=== PATIENT | male | born 1930 | race Caucasian/White ===

== ENCOUNTER → 2016-08-28 | Outpatient (CLI) | payer MEDICARE | LOC: GMAH 12:03 | PROVIDERS: ATTEND Family Medicine | DX: G40.309 Generalized idiopathic epilepsy and epileptic syndromes, not intractable, without status epilepticus (principal); E78.2 Mixed hyperlipidemia; Z12.5 Encounter for screening for malignant neoplasm of prostate | CPT/HCPCS: 80185; 84443; 84550; G0103 ==

== ENCOUNTER → 2016-12-21 | Outpatient (CLI) | payer MEDICARE | END | disposition home or self-care (01) | LOC: YCHH 09:15 | PROVIDERS: ATTEND Family Medicine | DX: I50.9 Heart failure, unspecified (principal); I10 Essential (primary) hypertension ==

== ENCOUNTER → 2017-02-13 | Outpatient (CLI) | payer MEDICARE | END | disposition home or self-care (01) | LOC: YCHH 09:11 | PROVIDERS: ATTEND Family Medicine | DX: I50.9 Heart failure, unspecified (principal); I10 Essential (primary) hypertension; M10.00 Idiopathic gout, unspecified site; Z79.01 Long term (current) use of anticoagulants ==

== ENCOUNTER → 2017-05-01 | Outpatient (CLI) | payer MEDICARE | LOC: YCHH 12:16 | PROVIDERS: ATTEND Family Medicine | DX: N18.9 Chronic kidney disease, unspecified (principal); I50.9 Heart failure, unspecified; I10 Essential (primary) hypertension; I48.0 Paroxysmal atrial fibrillation; G30.1 Alzheimer's disease with late onset ==

== ENCOUNTER 2017-09-09 05:40 | Day surgery (SDC) | payer MEDICARE ==
[2017-09-09] MEDS ORDERED: TROP 1%/CYCLOPEN 1%/PHENYL 2% DROPS ONE (05:46)
[2017-09-09] MEDS ORDERED: PROPARACAINE 0.5% OPHTH SOL 15 ML BTTL ONE (05:46)
[2017-09-09] MEDS ORDERED: MIDAZOLAM INJ 2 MG/2 ML VIAL ONE (06:55)
[2017-09-09] MEDS: TOBRAMYCIN SULF 0.3 % OPHT SOL 1 DROP LEFT_EYE ONE ×2 (07:00→07:32)
[2017-09-09] MEDS ORDERED: PROPARACAINE 0.5% OPHTH SOL 15 ML BTTL LEFT_EYE ONE (07:22)
[2017-09-09] MEDS ORDERED: DEXAMETHASONE 0.1% OPHTH SOL 1 DROP LEFT_EYE ONE ×3 (07:31→07:43)
[2017-09-09] MEDS ORDERED: LIDOCAINE 1% MPF 5 ML VIAL INJ ONE (07:31)
[2017-09-09] MEDS ORDERED: BRIMONIDINE 0.2% OPHTH DROPS LEFT_EYE ONE ×3 (07:32→07:43)
[2017-09-09] MEDS ORDERED: TOBRAMYCIN SULF 0.3 % OPHT SOL 1 DROP LEFT_EYE ONE ×2 (07:41→07:43)
[2017-09-10 10:29] VITALS: BP 158/68; TEMP 97.4; O2SAT 95
== END 2017-09-09 08:25 | disposition home or self-care (01) ==
LOC: AMB 05:40
PROVIDERS: ATTEND Ophthalmology
DX: H25.12 Age-related nuclear cataract, left eye (principal); I10 Essential (primary) hypertension; K21.9 Gastro-esophageal reflux disease without esophagitis; F41.9 Anxiety disorder, unspecified; Z88.8 Allergy status to other drugs, medicaments and biological substances; Z79.899 Other long term (current) drug therapy
CPT/HCPCS: 00142; 66984; J2250

== ENCOUNTER 2017-09-23 05:35 | Day surgery (SDC) | payer MEDICARE ==
[2017-09-23] MEDS ORDERED: TROP 1%/CYCLOPEN 1%/PHENYL 2% DROPS ONE (05:47)
[2017-09-23] MEDS ORDERED: MIDAZOLAM INJ 2 MG/2 ML VIAL ONE (07:13)
[2017-09-23] MEDS: PROPARACAINE 0.5% OPHTH SOL 15 ML BTTL ONE ×2 (07:48→09:13)
[2017-09-23] MEDS: TOBRAMYCIN SULF 0.3 % OPHT SOL 1 DROP RIGHT_EYE ONE ×2 (07:49→09:28)
[2017-09-23] MEDS ORDERED: LIDOCAINE 1% PF 2 ML AMP INJ ONE (09:18)
[2017-09-23] MEDS ORDERED: DEXAMETHASONE 0.1% OPHTH SOL 1 DROP RIGHT_EYE ONE ×2 (09:28→09:33)
[2017-09-23] MEDS ORDERED: BRIMONIDINE 0.2% OPHTH DROPS RIGHT_EYE ONE ×2 (09:29→09:33)
[2017-09-23] MEDS ORDERED: TOBRAMYCIN SULF 0.3 % OPHT SOL 1 DROP RIGHT_EYE ONE (09:33)
[2017-09-24 08:36] VITALS: BP 152/78; TEMP 97.6; O2SAT 97
== END 2017-09-23 10:15 | disposition home or self-care (01) ==
LOC: AMB 05:35
PROVIDERS: ATTEND Ophthalmology
DX: H25.11 Age-related nuclear cataract, right eye (principal); I10 Essential (primary) hypertension; I25.10 Atherosclerotic heart disease of native coronary artery without angina pectoris; J44.9 Chronic obstructive pulmonary disease, unspecified; Z79.899 Other long term (current) drug therapy
CPT/HCPCS: 00142; 66984; J2250

== ENCOUNTER → 2017-10-09 | Outpatient (CLI) | payer MEDICARE | LOC: YCHH 11:58 | PROVIDERS: ATTEND Family Medicine | DX: M10.00 Idiopathic gout, unspecified site (principal); E03.9 Hypothyroidism, unspecified; R68.89 Other general symptoms and signs; I50.9 Heart failure, unspecified; Z12.5 Encounter for screening for malignant neoplasm of prostate; Z79.899 Other long term (current) drug therapy | CPT/HCPCS: 80053; 80061; 80162; 80185; 81001; 82248; 84443; 84550; 85025; G0103 ==

== ENCOUNTER 2017-12-26 14:38 | Observation (INO) | payer MEDICARE ==
--- NOTE | 2017-12-26 15:03 | RAD ---
Frontal and lateral views of the right knee. Indication: fall with swelling and pain Comparison: June 26, 2015. Impression: Severe tricompartmental right knee osteoarthritis of pronounced joint space narrowing, cortical remodeling, joint line osteophytes. Chondrocalcinosis of the menisci noted. Soft tissue swelling noted anterior to the distal quadriceps tendon with suspected internal ossification within the tendon itself. Tendon tearing may be present. MRI could better evaluate as clinically indicated. Small knee effusion suspected. The bones are osteopenic. Given this limitation, no gross fracture identified. Scattered vascular calcifications. Electronically signed by: Guillermo Sanders MD 12/26/2017 3:02 PM CDT
--- NOTE | 2017-12-26 15:06 | ED.PDOC ---
History of Present Illness - General Chief Complaint: Trauma Stated Complaint: fall Time Seen by Provider: 12/26/17 15:01 Source: patient Exam Limitations: clinical condition - History of Present Illness Initial Comments: THIS PATIENT COMES TO THE ED BY AMBULANCE. EVIDENTLY HE FELL SEVERAL DAYS AGO AND INJURED HIS RIGHT KNEE AND SINCE THEN HE HAS BEEN CONFUSED. IT IS UNKNOWN IF HE INJURED HIS HEAD OR NOT. HE HAS GOUT. HE SEEMS CONFUSED AND IS A POOR HISTORIAN. Timing/Duration: 1 week Severity: moderate Improving Factors: immobilization Worsening Factors: movement Associated Symptoms: fever/chills, other - PROBLEMS TO URINATE. Allergies/Adverse Reactions: Allergies Codeine Allergy (Verified 12/26/17 14:56) Home Medications: Ambulatory Orders Allopurinol [Zyloprim] 300 mg PO DAILY 03/31/14 Levothyroxine Sodium [Synthroid] 0.175 mg PO ACBK #0 tab 04/01/14 Digoxin 0.125 mg PO BEDTIME 12/02/14 Indomethacin 50 mg PO DAILY PRN 12/02/14 Phenytoin Sodium Extended 100 mg PO BEDTIME 12/02/14 Potassium Gluconate 595 mg PO DAILY 12/02/14 Saw [place] (Serenoa Repens) [Saw [place]] 900 mg PO DAILY 12/02/14 Esomeprazole Magnesium [Nexium] 40 mg PO DAILY #30 cap 12/03/14 Furosemide [Lasix] 20 mg PO DAILY PRN 06/23/15 Bifidobacterium Infantis [Align] 4 mg PO BID #0 cap 06/27/15 predniSONE [Prednisone] 20 mg PO DAILY #3 tab 06/10/16 Review of Systems - Review of Systems Constitutional: States: fever, weakness EENTM: States: no symptoms reported Respiratory: States: no symptoms reported Cardiology: States: no symptoms reported Gastrointestinal/Abdominal: States: no symptoms reported Genitourinary: States: dysuria, frequency Musculoskeletal: States: joint pain, other - RIGHT KNEE PAIN Skin: States: no symptoms reported Neurological: States: tremors Endocrine: States: no symptoms reported Hematologic/Lymphatic: States: no symptoms reported All other Systems: Reviewed and Negative, No Change from Baseline Past Medical History (General) - Patient Medical History Hx Seizures: Yes Hx Stroke: No Hx Dementia: No Hx Asthma: No Hx of COPD: No Hx Cardiac Disorders: No Hx Congestive Heart Failure: Yes Hx Pacemaker: No Hx Hypertension: Yes Hx Thyroid Disease: Yes Hx Diabetes: No Hx Gastroesophageal Reflux: No Hx Renal Disease: No Hx Cancer: No Hx of HIV: No Hx Hepatitis C: No Hx MRSA: No MRSA Source:: Wound - Vaccination History Hx Tetanus, Diphtheria Vaccination: No Hx Influenza Vaccination: Yes Hx Pneumococcal Vaccination: Yes - Social History Hx Tobacco Use: No Hx Chewing Tobacco Use: No Hx Alcohol Use: No Hx Substance Use: No Hx Substance Use Treatment: No Hx Depression: No Hx Physical Abuse: No Hx Emotional Abuse: No Hx Suspected Abuse: No - Female History Patient : No Family Medical History - Family History Mother Family History: Unknown Living Status: Age at (years of age): 26 Cause of : TB Hx Family Asthma: No Hx Family Congestive Heart Failure: No Hx Family Hypertension: Yes - Brother Hx Family Stroke: Yes - Aunt Hx Cardiac Disease: No Hx Family Diabetes: No Hx Family Cancer: Yes - Aunt Physical Exam - Physical Exam General Appearance: Anxious, Frail, Other - CONFUSED, DIFFICULT TO OBTAIN A GOOD HISTORY Eye Exam: bilateral normal Ears, Nose, Throat: hearing grossly normal Neck: non-tender, full range of motion, supple, normal inspection Respiratory: chest non-tender, lungs clear, normal breath sounds, no respiratory distress, no accessory muscle use Cardiovascular/Chest: normal peripheral pulses, regular rate, rhythm, no edema, no gallop, no JVD, no murmur Peripheral Pulses: radial,right: 2+, radial,left: 2+ Gastrointestinal/Abdominal: normal bowel sounds, non tender, soft, no organomegaly, no pulsatile mass, other - DISTENDED BLADDER Rectal Exam: deferred Back Exam: normal inspection, no CVA tenderness, no vertebral tenderness Extremity: swelling - RIGHT KNEE WITH A TIGHT EFFUSION Neurologic: no motor/sensory deficits, alert, other - TREMOR NOTED Skin Exam: normal color Lymphatic: no adenopathy Progress - Results/Orders Results/Orders: THE LAB AND THE IMAGING IS REPORTED:' RIGHT KNEE: SEVERE DJD CT BRAIN: NO ACUTE PROCESS CXR: NO ACUTE PROCESS CBC: WBC'S 8.4, 78 % NEUTROPHILS CMP: CREATININE 1.69, BUN 41 BNP: 359 UA: NORMAL DIG LEVEL: 0.3 Procedures - Additional Procedures Progress: ARTHROCENTESIS; THE RIGHT KNEE HAD A TRAUMATIC EFFUSION-TIGHT PROCEDURE: THE KNEE WAS PREPPED WITH BETADINE AND ON THE MEDIAL AND LATERAL ASPECT OF THE KNEE I INFILTRATED WITH 1% LIDOCAINE. WITH AN 18 GUERRERO NEEDLE I OBTAINED 100 CC OF SEROUS SANGUINEOUS FLUID. THE PATIENT TOLERATED THE PROCEDURE WELL. THE SPECIMEN WAS SENT TO THE LAB. FOR WBC AND CULTURE. Departure - Departure Clinical Impression: Traumatic joint effusion Altered mental status Qualifiers: Altered mental status type: disorientation Qualified Code(s): R41.0 - Disorientation, unspecified Dementia Qualifiers: Dementia type: unspecified type Dementia behavioral disturbance: without behavioral disturbance Qualified Code(s): F03.90 - Unspecified dementia without behavioral disturbance Time of Disposition: 19:43 Referrals: Rojelio Mcdermott MD [Primary Care Provider] - 1-2 Weeks Home Medications: Ambulatory Orders Allopurinol [Zyloprim] 300 mg PO DAILY 03/31/14 Levothyroxine Sodium [Synthroid] 0.175 mg PO ACBK #0 tab 04/01/14 Digoxin 0.125 mg PO BEDTIME 12/02/14 Indomethacin 50 mg PO DAILY PRN 12/02/14 Phenytoin Sodium Extended 100 mg PO BEDTIME 12/02/14 Potassium Gluconate 595 mg PO DAILY 12/02/14 Saw [place] (Serenoa Repens) [Saw [place]] 900 mg PO DAILY 12/02/14 Esomeprazole Magnesium [Nexium] 40 mg PO DAILY #30 cap 12/03/14 Furosemide [Lasix] 20 mg PO DAILY PRN 06/23/15 Bifidobacterium Infantis [Align] 4 mg PO BID #0 cap 06/27/15 predniSONE [Prednisone] 20 mg PO DAILY #3 tab 06/10/16 Decision To Admit - Decistion To Admit Decision to Admit Date: 12/26/17 Decision to Admit Time: 19:44 - CASE DISCUSSED WITH SUDHA ROGERS RN
--- NOTE | 2017-12-26 15:46 | RAD ---
EXAM DESCRIPTION: Chest,1 View CLINICAL HISTORY: 87 years Male, SOB COMPARISON: None. TECHNIQUE: AP portable chest. FINDINGS: Heart size is prominent with normal pulmonary vascularity. No consolidating infiltrate. Linear scar in the right upper lobe above the minor fissure. Linear scar in the lingula. No pulmonary mass or worrisome nodule. No pneumothorax or pleural effusion. Old left rib fractures appear healed. Advanced degenerative changes of the shoulders noted bilaterally. Wide superior mediastinum is probably vascular although cervicothoracic goiter might be considered with slight leftward tracheal deviation. IMPRESSION: No consolidating infiltrate. Electronically signed by: Ken Tavares MD 12/26/2017 3:45 PM CDT
[2017-12-26] MEDS ORDERED: LIDOCAINE 1% 10 ML VIAL INJ ONE (16:01)
--- NOTE | 2017-12-26 18:22 | CT ---
PROCEDURE: Head CLINICAL HISTORY: 87 years Male AMS, RECENT FALL COMPARISON: None. TECHNIQUE: Contiguous axial images obtained through the brain without IV contrast. This exam was performed according to our department optimization program which includes automated exposure control, adjustment of the mA and/or kv according to patient size and/or use of iterative reconstruction technique. FINDINGS: The ventricles and sulci are prominent consistent with atrophic changes. No mass lesions. No acute hemorrhage. Atherosclerotic calcifications. Mild microvascular ischemic changes. Old lacunar infarcts or cysts in the basal ganglia regions. Minimal mucosal thickening in the maxillary sinuses. No depressed calvarial fractures. IMPRESSION: No acute intracranial abnormality is identified. Electronically signed by: Carlos Baires MD 12/26/2017 6:21 PM CDT
[2017-12-26] MEDS ORDERED: traMADol HCL 50 MG TAB PO ONE (19:11)
--- NOTE | 2017-12-26 20:08 | HP ---
SUPERVISING PHYSICIAN: Good Negro MD CHIEF COMPLAINT: Right knee pain and altered mental status. HISTORY OF PRESENT ILLNESS: This is an 87-year-old male patient who was brought to the Emergency Room via ambulance. Evidently he fell several days ago. The date was unknown, nor was the time know nor the extent of the injury because of the patient's mental status, but he has been complaining of right knee pain since that time. In the Emergency Room, his right knee was drained and obtained about 100 mL of serosanguineous fluid from the knee. It was sent for culture. He does have a history of gout. According to the family, he has also had a change in his mental status over the last 2 to 3 weeks and in the Emergency Room, his vital signs showed a temperature of 100.7, heart rate 96, blood pressure 137/69, respiratory rate 18, O2 saturation 92%. BNP was elevated at 359. WBCs 8.4, hemoglobin 13,hematocrit 38.4. Sodium 141, potassium 3.9, chloride 100, carbon dioxide 30, BUN 41, creatinine 1.69. His baseline creatinine is 1.5. Alkaline phosphatase 163. The remainder of his liver enzymes were within normal limits. Urinalysis was negative. Digoxin was slightly low at 0.3. Blood cultures were drawn. Head CT was done and per radiologic interpretation showed no acute intracranial abnormality. Chest x- ray showed no consolidating infiltrate. Right knee x-ray showed severe tricompartmental right knee osteoarthritis and pronounced joint space narrowing , cortical remodeling, joint-line osteophytes, chondrocalcinosis of the menisci noted. There is also soft tissue swelling noted anterior to the distal quadriceps tendon with suspected internal ossification within the tendon itself. Tendon tearing may be present and MRI could better evaluate the knee. Given the patient's change in mental status and the knee pain, I was called for admission. Past medical history and review of systems is limited due to no family available and the patient's present mental state. Information was obtained from the EMR. PAST MEDICAL HISTORY: 1. Atrial fibrillation. 2. Benign prostatic hypertrophy. 3. Chronic renal insufficiency. 4. Congestive heart failure of unknown etiology with no echocardiogram on the chart to review. 5. Gouty arthritis. 6. History of thyroid malignancy on Synthroid. 7. Hyperlipidemia. 8. Osteopenia. 9. Seizure disorder. PAST SURGICAL HISTORY: 1. Appendectomy. 2. 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 3. Thyroidectomy. 4. Neck surgery. 5. Left total knee arthroplasty. OUTPATIENT MEDICATIONS: Per the EMR and awaiting verification. ALLERGIES: CODEINE. FAMILY HISTORY: Noncontributory. CODE STATUS: He does have an Advance Directive that is to be brought to the hospital tomorrow by family members. SOCIAL HISTORY: He is . He lives with his . He has a history of cigar smoking, but he quit many years ago. There is no history of ETOH or illicit drug use. REVIEW OF SYSTEMS: Limited due to the patient's mental status. PHYSICAL EXAMINATION: VITAL SIGNS: Temperature 98.6. Pulse rate 85. Blood pressure 152/75. Respiratory rate 18. O2 saturation 93% on room air. GENERAL: This is an 87-year-old male patient lying in his hospital bed. He is in no acute distress. HEENT: Normocephalic, atraumatic. Pupils are equal and reactive. Oropharynx is clear. NECK: Supple without mass. No discernible jugular venous distention. RESPIRATORY: Essentially clear to auscultation bilaterally. CHEST: There is equal rise and fall of the chest with inspiration and expiration. CARDIOVASCULAR: Regular rate and rhythm. GASTROINTESTINAL: Abdomen is soft, nondistended, nontender. Bowel sounds are positive. EXTREMITIES: No cyanosis, clubbing or edema. He does have some swelling to the right knee just the right knee. It is wrapped in an Wally bandage from the drainage from the Emergency Room doctor. It is slightly tender to palpation along the superior portion of the kneecap on the anterior side. NEUROLOGIC: Awake, alert and disoriented. LABORATORY: Labs and films are as per history of present illness. ASSESSMENT: 1. Altered mental status of approximately 2 to 3 weeks with a negative CT of the head and no obvious source of infection. 2. Recent fall with trauma to the right knee, unknown date and time and unknown extent of injury due the patient's mental state. 3. Renal insufficiency with a baseline creatinine of 1.5. 4. Seizure disorder. 5. Atrial fibrillation. 6. Congestive heart failure of unknown etiology. 7. History of gouty arthritis. PLAN: We will place the patient in observation. We will do q.4h. neuro checks. I will restart his home medications. Hopefully I can speak to the family tomorrow to get a little bit better idea of what is going on with him. I will also talk to the patient's family physician, Dr. Mcdermott. Depending on his clinical condition, we may need to consult Dr. Morales tomorrow regarding the right knee. I will monitor the cultures and followup as needed. Dr. Negro is the collaborating physician and available for consultation. #[id number] [facility]
[2017-12-26] MEDS ORDERED: SODIUM CHLORIDE 0.9% (FLUSH) 10 ML SYG IV PRN (20:51)
[2017-12-26] MEDS ORDERED: IV SET AND CAP CHANGE INJ INJ SCH (21:00)
[2017-12-26] MEDS ORDERED: PANTOPRAZOLE SODIUM IV 40 MG VIAL IV SCH (21:30)
[2017-12-26] MEDS ORDERED: PHENYTOIN SODIUM CAP EXTENDED 100 MG CAP PO SCH (21:32)
[2017-12-26] MEDS: SODIUM CHLORIDE 0.9% (FLUSH) 10 ML SYG IV SCH (21:53)
[2017-12-27] MEDS ORDERED: LEVOTHYROXINE SODIUM 0.075 MG TAB ONE (04:55)
[2017-12-27] MEDS ORDERED: LEVOTHYROXINE SODIUM 0.1 MG TAB PO SCH (07:00)
[2017-12-27] MEDS: SODIUM CHLORIDE 0.9% (FLUSH) 10 ML SYG IV SCH (08:45)
[2017-12-27] MEDS ORDERED: DIGOXIN 0.125 MG TAB PO SCH ×2 (12:00→21:00)
[2017-12-27] MEDS ORDERED: POTASSIUM CHLORIDE 20 MEQ TAB PO ONE (13:02)
[2017-12-27] MEDS ORDERED: IBUPROFEN 400 MG TAB PO ONE (13:14)
[2017-12-27] MEDS ORDERED: IBUPROFEN 200 MG TAB ONE (13:18)
--- NOTE | 2017-12-27 15:55 | RAD ---
EXAM DESCRIPTION: Hip,Right 2 Views CLINICAL HISTORY: hip pain COMPARISON: None. IMPRESSION: 2 views of the right hip shows no evidence of acute fracture, focal bone destruction, or joint dislocation. Moderate joint space narrowing and sclerotic changes to the superior lateral acetabulum are seen consistent with moderate to severe osteoarthritic-type changes. Question heterotopic ossification around the femoral neck. If the patient's pain persists, further evaluation with CT or MRI imaging is recommended for better evaluation. Soft tissues show surgical suture line in the right lower abdomen and pelvis. Findings suggest mild to moderate fecal impaction in the colon. Electronically signed by: Manuelito Trent MD 12/27/2017 3:53 PM CDT
[2017-12-27] MEDS ORDERED: PANTOPRAZOLE SODIUM TAB 40 MG PO SCH (16:30)
[2017-12-27 18:01] VITALS: TEMP 98.4
[2017-12-27 18:07] VITALS: BP 125/68; O2SAT 94
[2017-12-27] MEDS ORDERED: PHENYTOIN SODIUM CAP (ER DISP) 100 MG CAP PO SCH (21:00)
[2017-12-28] MEDS ORDERED: LEVOTHYROXINE SODIUM 0.075 MG TAB PO SCH (06:30)
[2017-12-28] MEDS ORDERED: LEVOTHYROXINE SODIUM 0.1 MG TAB PO SCH (06:30)
--- NOTE | 2017-12-30 19:00 | DS ---
SUPERVISING PHYSICIAN: Good Negro M.D. DISCHARGE DIAGNOSIS: 1. Altered mental status of approximately 2 to 3 weeks with a negative CT of the head and no obvious source of infection. 2. Recent fall with trauma to the right knee, unknown date and time and unknown extent of injury due the patient's mental status. 3. Renal insufficiency with a baseline creatinine of 1.5. 4. Seizure disorder. 5. Atrial fibrillation. 6. Congestive heart failure of unknown etiology. 7. History of gouty arthritis. HISTORY OF PRESENT ILLNESS: This is an 87-year-old male patient who was brought to the Emergency Room on date of admission via ambulance. He fell several days prior to his admission. He had been complaining about right knee pain and in the Emergency Room the E. R. doctor drained approximately 100 mL of serosanguineous fluid from the knee. It was sent for culture. He does have a history of gout, also of concerns for a 2 to 3 week history of acute mental status changes. The patient does have a history of dementia but the family says it has worsened in the last 2 to 3 weeks. His vital signs in the Emergency Room showed a temperature of 100.7, heart rate 96, blood pressure 137/ 69, respiratory rate 18, O2 saturation 92%. BNP was elevated at 359. WBCs 8.4 , hemoglobin 13, hematocrit 38.4. Sodium 141, potassium 3.9, chloride 100, carbon dioxide 30, BUN 41, creatinine 1.69. His baseline creatinine is 1.5. Alkaline phosphatase 163. The remainder of his liver enzymes were within normal limits. Urinalysis was negative. Digoxin was slightly low at 0.3. Blood cultures were drawn. Head CT was done and per radiologic interpretation showed no acute intracranial abnormality. Chest x-ray showed no consolidating infiltrate. Right knee x-ray showed severe tricompartmental right knee osteoarthritis and pronounced joint space narrowing with cortical remodeling, joint-line osteophytes, chondrocalcinosis of the menisci was noted. There is also soft tissue swelling noted anterior to the distal quadriceps tendon with suspected internal ossification within the tendon itself. Tendon tearing may be present and MRI was recommended. He was placed in Observation in the hospital. HOSPITAL COURSE: He was given fluids overnight. I discussed his case at length with Dr. Mcdermott the morning of discharge and he did say that he had known this patient for 20 plus years and there was definitely a mental status change, although today his mental status had improved. His vital signs remained stable. Potassium was slightly low this morning at 3.3 but his creatinine had improved to 1.57. On admission, the patient had a difficult time answering simple questions. Today, he is oriented to person and place. He will be discharged home today. DISCHARGE PLAN: The patient will be discharged home in stable condition. We have ordered an MRI as an outpatient on Saturday as well as an MRI of the right knee. He will followup with his primary care physician, Dr. Mcdermott, on Saturday , December 31. He will be discharged home with [facility]. He will be discharged home on his previous medications. He is to return to the hospital or call Dr. Mcdermott's office for any further problems or complications. DISCHARGE MEDICATIONS: 1. Allopurinol. 2. Synthroid. 3. Saw palmetto. 4. Potassium gluconate. 5. Indomethacin. 6. Phenytoin. 7. Digoxin. 8. Nexium. 9. Lasix. 10. Align. 11. Flexeril. 12. Warfarin. Dr. Negro is the collaborating physician available for consultation. #[id number] [facility]
== END 2017-12-27 15:30 | disposition home or self-care (01) ==
LOC: ER 14:38 → MS 20:05
PROVIDERS: ADMIT Nurse Practitioner Acute Care; ATTEND Nurse Practitioner Acute Care
DX: M25.461 Effusion, right knee (principal); S89.81XA Other specified injuries of right lower leg, initial encounter; M17.11 Unilateral primary osteoarthritis, right knee; R41.82 Altered mental status, unspecified; M10.9 Gout, unspecified; F03.90 Unspecified dementia, unspecified severity, without behavioral disturbance, psychotic disturbance, mood disturbance, and anxiety; M25.551 Pain in right hip; I48.91 Unspecified atrial fibrillation; I13.0 Hypertensive heart and chronic kidney disease with heart failure and stage 1 through stage 4 chronic kidney disease, or unspecified chronic kidney disease; N18.9 Chronic kidney disease, unspecified; I50.9 Heart failure, unspecified; E78.5 Hyperlipidemia, unspecified; G40.909 Epilepsy, unspecified, not intractable, without status epilepticus; M85.861 Other specified disorders of bone density and structure, right lower leg; W19.XXXA Unspecified fall, initial encounter; Y92.009 Unspecified place in unspecified non-institutional (private) residence as the place of occurrence of the external cause; Z79.899 Other long term (current) drug therapy; Z88.6 Allergy status to analgesic agent; Z87.891 Personal history of nicotine dependence
CPT/HCPCS: 20610; 96374; 89051; 80053 ×2; 36415 ×3; 84550; 81001; 85025 ×2; 87040 ×2; 87070; 80162; 84443; 83880; 71045; 73560 ×2; 73502; 70450; 94760 ×4; 99285; G0378

== ENCOUNTER → 2017-12-30 | Outpatient (CLI) | payer MEDICARE ==
--- NOTE | 2017-12-30 14:26 | MRI ---
MRI right knee without contrast INDICATION: Chronic knee pain chondrosis and arthritis TECHNIQUE: Noncontrast MR imaging right knee standard protocol FINDINGS: Cruciate ligaments are intact. Large joint effusion. Extensor tendons are intact. There is advanced osteoarthrosis with [id number] joint space narrowing and grade 4 chondrosis with subchondral edema and cystic change throughout the medial tibiofemoral compartment. The medial meniscus demonstrates a diffuse degenerative tear with maceration volume loss and extrusion of the remnant along the medial joint line. There is lower grade osteoarthrosis of the lateral tibiofemoral compartment with multifocal grade 4 chondrosis with subchondral edema and cystic change. There is a horizontal cleavage type degenerative tear throughout the lateral meniscus. No disruption of the collateral ligaments. There is a nondisplaced complex stellate or V-shaped fracture of the lateral patellar facet with adjacent chondrosis correlate with recent trauma versus an unusual stress or insufficiency fracture. There is synovitis/debris and hemorrhage in the patellofemoral region. Multifocal grade 2-3 chondrosis throughout the patellofemoral joint otherwise. Prominent debris in the suprapatellar compartment or synovitis. IMPRESSION: Severe [id number] osteoarthrosis of the medial tibiofemoral compartment with macerated medial meniscal tear medially extruded Horizontal cleavage tear lateral meniscus degenerative morphology Large joint effusion with synovitis/debris Nondisplaced fractures with stellate hairline components in the lateral patellar facet No stabilizing ligament rupture Electronically signed by: Marcel Haney MD 12/30/2017 2:24 PM CDT
--- NOTE | 2017-12-30 16:19 | MRI ---
EXAM DESCRIPTION: Brain w/o Contrast: MRI. CLINICAL HISTORY: ALTERED MENTAL STATUS COMPARISON: MRI of the knee on the same visit. CT scan of the head 08/03/2014. TECHNIQUE: Multiplanar, high-field MRI unit, multiple diffusion sequences, multiple conventional sequences without contrast. FINDINGS: Multi foci of hyperintense FLAIR and T2-weighted signal in the periventricular white matter and pozo-white matter junctions of the cerebral hemispheres. . Bilaterally symmetric. Largest lesion is in the right frontal parietal cortex near the vertex. Small cyst versus prominent perivascular space in the right basal ganglia. No significant findings in the basal ganglia. No hemorrhage, no cerebral edema, no mass-effect. Normal signal in the brainstem and cerebellar hemispheres. No hemorrhage, no cerebral edema, no mass-effect. Concordance of the diffusion and non-diffusion sequences with no diffusion restriction. Cortical sulci, ventricles, and other CSF spaces, and the subdural spaces are minimally prominent for patient's age.. No effacement or displacement. No midline shift. No extra-axial hemorrhage. Normal flow signal void in the major vessels of the [place], and the venous sinuses. IACs are symmetric bilaterally. Normal signal in the bilateral mastoid air cells. No mass effect in the bilateral cerebellopontine angles. Pituitary gland occupies most of the sella. Base of the cerebellar tonsils is above the foramen magnum. Minimal mucosal thickening in the paranasal sinuses. The bony calvarium is intact. IMPRESSION: 1. Multiple foci bilaterally symmetric hyperintensities on T2 and FLAIR signal most likely related to cerebral microvascular disease. Less likely related to demyelinating process, migraine headaches, inflammatory process, or vasculitis. Normal diffusion. No hemorrhage, no mass effect, no cerebral edema. 2. Minimal chronic ethmoid paranasal sinusitis. Electronically signed by: Dane Dixon MD 12/30/2017 4:17 PM CDT
== END ==
LOC: MRI 11:37
PROVIDERS: ATTEND Nurse Practitioner Acute Care
DX: R41.82 Altered mental status, unspecified (principal); S83.241A Other tear of medial meniscus, current injury, right knee, initial encounter; S83.281A Other tear of lateral meniscus, current injury, right knee, initial encounter; S82.091A Other fracture of right patella, initial encounter for closed fracture; M19.91 Primary osteoarthritis, unspecified site

== ENCOUNTER → 2018-01-15 | Outpatient (CLI) | payer MEDICARE | LOC: YCHH 09:25 | PROVIDERS: ATTEND Family Medicine | DX: D64.9 Anemia, unspecified (principal); Z79.01 Long term (current) use of anticoagulants ==

== ENCOUNTER 2018-05-26 13:48 | Emergency (ER) | payer MEDICARE ==
--- NOTE | 2018-05-26 14:34 | RAD ---
EXAM DESCRIPTION: Chest,1 View CLINICAL HISTORY: 87 years Male, acute sob, right hand pain COMPARISON: Previous study December 26, 2017 and earlier chest x-ray December 01, 2014 TECHNIQUE: AP portable chest. FINDINGS: Heart size is large with centrally prominent pulmonary vascularity. Minimal density in the peripheral right upper lobe is seen above the peripheral right minor fissure. This area was clear in 2014 but there was a linear abnormal density here in December 2017. Continued follow-up is recommended to rule out developing nodule or infiltrate in this area. Otherwise no consolidating infiltrate. No pulmonary mass or worrisome nodule. No pneumothorax or pleural effusion. Old left rib fractures appear healed. Degenerative changes are seen in the shoulders, severe on the left. IMPRESSION: Large heart without congestive failure. Right upper lobe density peripherally above the minor fissure is indeterminate, slightly more prominent than on previous study. Careful attention to this area on follow-up is recommended. Electronically signed by: Ken Tavares MD 05/26/2018 2:33 PM CDT
[2018-05-26] MEDS ORDERED: ACETYLCYSTEIN 20 % 6,000 MG/30 ML VIAL PO ONE (14:35)
--- NOTE | 2018-05-26 15:57 | CT ---
EXAM DESCRIPTION: CTA Chest: Computed Tomography. CLINICAL HISTORY: hypoxia, chest pain, decreased r radial pulse COMPARISON: Portable chest on this visit. TECHNIQUE: Spiral-axial scans at 2.5 mm intervals through the pulmonary arteries and chest after bolus infusion of IV contrast. Lung algorithm _1.25-mm axial reconstructions. 2.0 Mm reconstructions. 15 .0 mm PE oblique 3-D reformatted images. No adverse reactions. Total Exam DLP: 1087.66 mGy-cm. This exam was performed according to our departmental CT dose-optimization program which includes automated exposure control, adjustment of the mA and/or kV according to patient size and/or use of iterative reconstruction technique; to reduce radiation dose to as low as reasonably achievable (ALARA). Note: The patient had a EGFR measurement of 35. Dr. Negro, the ordering emergency medicine physician stated that this examination was medically necessary, directly by phone to the radiologist, prior to the examination. FINDINGS: A filling defect is noted in the proximal right upper lobe lobar pulmonary artery at the origin from the main right pulmonary artery. The lobar artery and distal segmental branches are occluded as well. There is also a large filling defect in the origins of the pulmonary lobar artery branches to the right middle lobe and right lower lobe. The segmental branches in the right middle lobe and right lower lobe are partially occluded. Filling defect is noted in the bifurcation of the right upper lobe lobar artery with partial occlusion of the segmental branches. Thrombi are also partially occluding the lingular segmental branches, and some of the segmental branches off of the inferior lobar artery. The aortic phase images show atherosclerotic calcification in the thoracic aortic arch with minimal narrowing of the origin of the right innominate artery. Minimal atherosclerotic narrowing of the origin of the left subclavian artery and common carotid artery from the aortic arch and the bifurcation of the right subclavian artery from the right common carotid artery. No significant stenoses in the bilateral subclavian arteries to the axillary segments. No significant stenosis or dissection of the aortic arch or descending thoracic aorta. No occlusion of the major branch vessels originating from the aorta. Dilated airspaces in the lung predominantly in the upper lobes. Thickening of the right horizontal fissure. Patchy densities in the left apex. 6 mm solid nodule in the medial anterior base, right upper lobe on lung window axial sequence 5, image 84,. Bibasilar scarring and pleural thickening in the lower lobes. Atelectasis and scarring in the bilateral bases. No pleural effusion or pneumothorax. Partial visualization of a cyst in the right thyroid lobe. No large soft tissue nodules or adenopathy in the mediastinum or hilum. No axillary adenopathy no dominant chest wall masses. Coronary artery calcifications and stents. Atherosclerotic calcification in the upper abdominal aorta. The inferior image of the study suggests a soft tissue mass versus bowel abutting the aorta. No aneurysm of the included thoracic aorta. No peritoneal cavity fluid or free air. Included spleen and adrenal glands are unremarkable. Gallbladder partially visualized. Multiple levels of spondylosis mid and upper thoracic spine. No blastic or lytic lesions. Arthrosis changes in the bilateral glenohumeral joints and in the bilateral sternoclavicular joints. Mild pectus excavatum distally. IMPRESSION: 1. Extensive bilateral pulmonary emboli extending into segmental branches in every lobe bilaterally. Apparently a complete blockage of the right upper lobar pulmonary artery branch. No large infarctions noted in the lung parenchyma at this time. 2. No aortic stenosis or dissection. Contrast flows well into the bilateral subclavian arteries to the level of the axillary segments. 3. 6 mm solid nodule in the anterior medial base of the right upper lobe. Recommend follow-up CT scan of the thorax at 6-12 month interval. Consider follow-up CT scan at 18-24 month interval. According to [facility] Best Practice recommendations, referencing 2017 Fleischner Society recommendations for imaging single solid incidental pulmonary nodules. Please see below.* 4. Question of soft tissue mass or bowel surrounding the abdominal aorta just below the origin of the bilateral renal arteries. Consider follow-up nonemergent CT scan of the abdomen and pelvis with IV and oral contrast. *2017 Fleischner Society Recommendations for Single Solid Lung Nodule Follow-Up based on size (average of long- and short-axis diameters) 6-8 mm Low-Risk Patient: CT at 6-[address] at 18-24 months 6-8 mm High-Risk Patient: CT at 6-[address] at 18-24 months . CRITICAL COMMUNICATION: The critical value was discussed directly by phone with Dr. Raúl Negro at approximately 1530 hours, on May 26, 2018. Electronically signed by: Dane Dixon MD 05/26/2018 3:55 PM CDT
[2018-05-26] MEDS ORDERED: ALTEPLASE 100 MG IV.SOLN IV ONE (15:59)
[2018-05-26] MEDS: ALTEPLASE 100 MG IV.SOLN IV ONE ×2 (15:59→16:53)
--- NOTE | 2018-05-26 16:28 | ED.PDOC ---
History of Present Illness - General Chief Complaint: Respiratory Problem Stated Complaint: shortness of breath, right arm pain Time Seen by Provider: 05/26/18 13:54 Source: patient Exam Limitations: no limitations - History of Present Illness Initial Comments: the patient is a 87-year-old male presenting to the emergency room secondary to profound shortness of breath with associated chest pain and right arm pain. the patient does have a history of atrial fibrillation and does see Dr. Salvador for this. In theory he was supposed to have stopped the Coumadin and digoxin a couple of weeks ago. There is some confusion as to whether it was actually stopped. His INR today here is 1.2 so if he is taking the Coumadin is obviously significantly subtherapeutic. The patient's symptoms started around 8 AM this morning with some mild shortness of breath. This persisted until around 12:30 or 1:00 this afternoon for a suddenly became very short of breath and started having chest pain in the right arm pain. the right radial pulse was almost nonpalpable upon arrival by EMS. The right hand was also fairly pale. The pulse becomes more palpable with his blood pressures rising and the color has improved with improved oxygenation. EMS was initially unable to obtain a pulse oximetry reading upon arrival but after applying oxygen and her initial readings were in the low 80s. By the time he arrived here with supplemental oxygen and his oxygen levels were in the 90s to high 80s. Upon arrival the patient was breathing almost 30 times a minute and was diaphoretic and mildly confused. He was extremely pale. Most notable for the dilated external jugular veins as well as the veins going down both arms which were corded out. Chest pain and arm pain did improve with improved oxygenation. Any time the patient's oxygen levels fell for more than a minute or 2 the chest pain and right arm pain would come back. Pulse in the right radial artery is more palpable with his higher blood pressures. Severity: severe Improving Factors: other - oxygen Worsening Factors: movement Associated Symptoms: chest pain, diaphoresis, malaise, shortness of breath, weakness Allergies/Adverse Reactions: Allergies Codeine Allergy (Verified 12/26/17 20:55) Home Medications: Ambulatory Orders Allopurinol [Zyloprim] 300 mg PO DAILY 03/31/14 Levothyroxine Sodium [Synthroid] 0.175 mg PO ACBK #0 tab 04/01/14 Digoxin 0.125 mg PO BEDTIME 12/02/14 Indomethacin 50 mg PO DAILY PRN 12/02/14 Phenytoin Sodium Extended 300 mg PO BEDTIME 12/02/14 Potassium Gluconate 595 mg PO DAILY 12/02/14 Saw [place] (Serenoa Repens) [Saw [place]] 900 mg PO DAILY 12/02/14 Esomeprazole Magnesium [Nexium] 40 mg PO DAILY #30 cap 12/03/14 Furosemide [Lasix] 40 mg PO DAILY PRN 06/23/15 Bifidobacterium Infantis [Align] 4 mg PO BID 12/26/17 Cyclobenzaprine HCl [Flexeril] 10 mg PO Q8H #10 tab 12/27/17 Review of Systems - Review of Systems Constitutional: States: diaphoresis, malaise, weakness EENTM: States: no symptoms reported, blurred vision - for a little while Respiratory: States: short of breath Cardiology: States: chest pain Gastrointestinal/Abdominal: States: nausea Genitourinary: States: no symptoms reported Musculoskeletal: States: no symptoms reported Skin: States: see HPI Neurological: States: anxiety Endocrine: States: excessive sweating All other Systems: No Change from Baseline Past Medical History (General) - Patient Medical History Hx Seizures: No Hx Stroke: No Hx Dementia: No Hx Asthma: No Hx of COPD: Yes Hx Cardiac Disorders: Yes Hx Congestive Heart Failure: No Hx Pacemaker: No Hx Hypertension: Yes Hx Thyroid Disease: No Hx Diabetes: No Hx Gastroesophageal Reflux: No Hx Renal Disease: No Hx Cancer: No Hx of HIV: No Hx Hepatitis C: No Hx MRSA: No MRSA Source:: Wound Surgical History: appendectomy - Vaccination History Hx Tetanus, Diphtheria Vaccination: No Hx Influenza Vaccination: Yes Hx Pneumococcal Vaccination: Yes Immunizations Up to Date: Yes - Social History Hx Tobacco Use: No Hx Chewing Tobacco Use: No Hx Alcohol Use: No Hx Substance Use: No Hx Substance Use Treatment: No Hx Depression: No Feels Threatened In Home Enviroment: No Feels Threatened In a Relationship: No Hx Physical Abuse: No Hx Emotional Abuse: No Hx Suspected Abuse: No - Female History Patient is a Female of Child Bearing Age (10 -59 yrs old): No Patient : No Family Medical History - Family History Mother Family History: Unknown Living Status: Age at (years of age): 26 Cause of : TB Hx Family Asthma: No Hx Family Congestive Heart Failure: No Hx Family Hypertension: Yes - Brother Hx Family Stroke: Yes - Aunt Hx Cardiac Disease: No Hx Family Diabetes: No Hx Family Cancer: Yes - Aunt Physical Exam - Physical Exam General Appearance: Alert, Anxious, Obvious distress, Ill Appearing Eye Exam: bilateral normal Ears, Nose, Throat: hearing grossly normal, normal ENT inspection, normal pharynx Neck: full range of motion, other - marked jugular venous distention Respiratory: lungs clear, normal breath sounds, respiratory distress, accessory muscle use Cardiovascular/Chest: no edema, irregularly irregular, other - tachycardic Peripheral Pulses: radial,right: 0 - did improve with higher blood pressure, radial,left: 2+, dorsalis pedis,right: 1+, dorsalis pedis,left: 1+ Gastrointestinal/Abdominal: non tender, soft Rectal Exam: deferred Back Exam: normal inspection, no CVA tenderness, no vertebral tenderness Extremity: normal range of motion, no pedal edema, no calf tenderness, normal capillary refill Neurologic: instructional design consultant II-XII nml as tested, alert, oriented x 3 Skin Exam: pallor Comments: Vital Signs - 24 hr 05/26/18 05/26/18 05/26/18 13:54 14:49 15:59 Temperature 98.5 F Pulse Rate [ 110 H 108 H Left Radial] Respiratory 26 H 20 Rate Blood Pressure 147/97 Blood Pressure 116/67 147/97 [Left Arm] O2 Sat by Pulse 90 L 95 Oximetry Progress - Progress Progress: 05/26/18 16:35 the patient is an 87-year-old male with extensive bilateral pulmonary emboli but worse on the right. He is obviously having some difficulties with oxygenation and has likely markedly elevated pulmonary artery pressures based on the extent of his JVD. For now he is holding his blood pressures well and holding his oxygen levels well with the nonrebreather. He is alert and oriented and cooperative. He does understand what is going on. He does take Coumadin for his atrial fibrillation however his INR was 1.2. He is of advanced age. I have discussed the use of lytic therapy with him and his family. They do understand that the sooner the medication goes on board the more likely he is to have a positive benefit from it. They do also understand that he may have bleeding caused by it, and given his comorbidities is at a higher risk for adverse outcome from the lytic therapy than someone without his problems. I have advised for the use of lytic therapy on this patient because I do believe that unless his pulmonary artery pressures are significantly reduced in the very near future, he will go into a florid congestive heart failure exacerbation. He already has atrial fibrillation and a known history of congestive heart failure so this would be very easy to do. in short, I believe the patient has a better chance at a better outcome by receiving lytic therapy than withholding it. family does understand that if this fails then clot retrieval maybe an option. alteplase 100 mg over 2 hours has been started. The patient is continuing to look a little better. The patient will be transferred for further evaluation and continued care. he does have an elevation of his troponins. This is likely an aspect of the hypoxia and cardiac strain.Additionally the right hand pain is improved with a better blood pressure and oxygenation. This is likely claudication unmasked by the lower pressures and hypoxia. 45 minutes of critical care time has been spent on this patient and treating his acute pulmonary embolus. Time is also been spent an arrangement for transfer for higher level of care as well as time spent in discussion with his family about options for his care. 05/26/18 16:48 - Results/Orders Results/Orders: telemetry shows atrial fibrillation with borderline tachycardia. There are frequent PVCs. EKG shows either atrial flutter or sinus tachycardia at 109 bpm with frequent PVCs. He has historically had atrial fibrillation. He does have mild ST segment elevation in inferior leads but this is consistent with his EKGs from 2016. He does have left axis deviation which is old as well. He does have a right bundle branch block which is old as well. QT interval is prolonged. Difficult to determine any new ischemia when compared to previous EKGs. CT scan of the chest with IV contrast shows bilateral pulmonary emboli with very significant occlusion of the right side primarily. There are other chronic findings present. See details of report. 05/26/18 13:55 Telemetry .CONTINUOUS 05/26/18 14:00 EKG STAT Laboratory Results - last 24 hr 05/26/18 05/26/18 05/26/18 14:05 14:05 14:05 WBC 8.0 RBC 3.93 L Hgb 12.4 L Hct 37.8 L MCV 96.1 H MCH 31.5 H MCHC 32.8 L RDW 15.9 H Plt Count 187 MPV 7.3 L Absolute Neuts (auto) 6.60 Absolute Lymphs (auto) 0.50 L Absolute Monos (auto) 0.80 Absolute Eos (auto) 0.10 Absolute Basos (auto) 0.00 Neutrophils % 82.9 H Lymphocytes % 6.2 L Monocytes % 9.8 H Eosinophils % 0.6 L Basophils % 0.5 PT INR PTT (SP) 25.9 D-Dimer, Quantitative 26.59 H* Sodium 142 Potassium 3.9 Chloride 105 Carbon Dioxide 27 Anion Gap 13.9 BUN 37 H Creatinine 1.72 H BUN/Creatinine Ratio 21.5 H Random Glucose 120 H Serum Osmolality 293.0 Lactic Acid Calcium 9.2 Total Bilirubin 1.2 H AST 35 ALT 16 Alkaline Phosphatase 212 H Creatine Kinase 62 CK-MB (CK-2) 3.9 CK-MB (CK-2) % Not Reportable Troponin I 0.31 H* B-Natriuretic Peptide 203.0 H* Serum Total Protein 7.3 Albumin 3.8 Globulin 3.5 Albumin/Globulin Ratio 1.1 TSH < 0.06 L 05/26/18 05/26/18 14:05 14:15 WBC RBC Hgb Hct MCV MCH MCHC RDW Plt Count MPV Absolute Neuts (auto) Absolute Lymphs (auto) Absolute Monos (auto) Absolute Eos (auto) Absolute Basos (auto) Neutrophils % Lymphocytes % Monocytes % Eosinophils % Basophils % PT 12.0 H INR 1.20 H PTT (SP) D-Dimer, Quantitative Sodium Potassium Chloride Carbon Dioxide Anion Gap BUN Creatinine BUN/Creatinine Ratio Random Glucose Serum Osmolality Lactic Acid 2.3 H Calcium Total Bilirubin AST ALT Alkaline Phosphatase Creatine Kinase CK-MB (CK-2) CK-MB (CK-2) % Troponin I B-Natriuretic Peptide Serum Total Protein Albumin Globulin Albumin/Globulin Ratio TSH Departure - Departure Clinical Impression: Hypoxia Pulmonary embolus Qualifiers: Pulmonary embolism type: saddle Chronicity: acute Acute cor pulmonale presence : with acute cor pulmonale Qualified Code(s): I26.02 - Saddle embolus of pulmonary artery with acute cor pulmonale Disposition: Transfer to Hospital Condition: Serious Referrals: Rojelio Mcdermott MD [Primary Care Provider] - 1-2 Weeks Home Medications: Ambulatory Orders Allopurinol [Zyloprim] 300 mg PO DAILY 03/31/14 Levothyroxine Sodium [Synthroid] 0.175 mg PO ACBK #0 tab 04/01/14 Digoxin 0.125 mg PO BEDTIME 12/02/14 Indomethacin 50 mg PO DAILY PRN 12/02/14 Phenytoin Sodium Extended 300 mg PO BEDTIME 12/02/14 Potassium Gluconate 595 mg PO DAILY 12/02/14 Saw [place] (Serenoa Repens) [Saw [place]] 900 mg PO DAILY 12/02/14 Esomeprazole Magnesium [Nexium] 40 mg PO DAILY #30 cap 12/03/14 Furosemide [Lasix] 40 mg PO DAILY PRN 06/23/15 Bifidobacterium Infantis [Align] 4 mg PO BID 12/26/17 Cyclobenzaprine HCl [Flexeril] 10 mg PO Q8H #10 tab 12/27/17 Transfer to Outside Facility - Transfer Information Accepting Provider:: dr peña Accepting Facility: [facility] Reason for Transfer: required specialist not available
[2018-05-26 16:58] VITALS: O2SAT 94
[2018-05-26 17:32] VITALS: BP 132/66; TEMP 97.1
== END 2018-05-26 17:29 | disposition short-term general hospital (02) ==
LOC: ER 13:48
DX: I26.02 Saddle embolus of pulmonary artery with acute cor pulmonale (principal); R09.02 Hypoxemia; R07.9 Chest pain, unspecified; R79.1 Abnormal coagulation profile; R41.0 Disorientation, unspecified; I48.91 Unspecified atrial fibrillation; I10 Essential (primary) hypertension; J44.9 Chronic obstructive pulmonary disease, unspecified; Z88.5 Allergy status to narcotic agent; Z79.01 Long term (current) use of anticoagulants; Z79.899 Other long term (current) drug therapy
CPT/HCPCS: 36415; 71045; 71275; 80053; 82550; 82553; 83605; 83880; 84443; 84484; 85025; 85379; 85610; 85730; 93005; J2997

== ENCOUNTER 2018-06-16 20:21 | Emergency (ER) | payer MEDICARE ==
--- NOTE | 2018-06-16 21:41 | ED.PDOC ---
History of Present Illness - General Chief Complaint: Fever Stated Complaint: fever Time Seen by Provider: 06/16/18 21:22 Source: patient Exam Limitations: no limitations - History of Present Illness Initial Comments: Dimitri Villalpando 87 y/o male brought by EMS with low grade fever that was noted at the [facility] he is presently on indwelling catheter since discharge from the hospital with incontinence of urine.He was hospitalized for right PE then was discharge to rehab facility.Had resumed his blood thinners according to daughter. Timing/Duration: 4-6 hours, changing over time Severity: moderate Improving Factors: nothing Worsening Factors: nothing Associated Symptoms: fever/chills Allergies/Adverse Reactions: Allergies Codeine Allergy (Verified 12/26/17 20:55) Home Medications: Ambulatory Orders Allopurinol [Zyloprim] 300 mg PO DAILY 03/31/14 Levothyroxine Sodium [Synthroid] 0.175 mg PO ACBK #0 tab 04/01/14 Digoxin 0.125 mg PO BEDTIME 12/02/14 Indomethacin 50 mg PO DAILY PRN 12/02/14 Phenytoin Sodium Extended 300 mg PO BEDTIME 12/02/14 Potassium Gluconate 595 mg PO DAILY 12/02/14 Saw Uneeda (Serenoa Repens) [Saw Uneeda] 900 mg PO DAILY 12/02/14 Esomeprazole Magnesium [Nexium] 40 mg PO DAILY #30 cap 12/03/14 Furosemide [Lasix] 40 mg PO DAILY PRN 06/23/15 Bifidobacterium Infantis [Align] 4 mg PO BID 12/26/17 Cyclobenzaprine HCl [Flexeril] 10 mg PO Q8H #10 tab 12/27/17 Review of Systems - Review of Systems Constitutional: States: fever EENTM: States: no symptoms reported Respiratory: States: no symptoms reported Cardiology: States: no symptoms reported Gastrointestinal/Abdominal: States: no symptoms reported Genitourinary: States: see HPI Musculoskeletal: States: other - chronic indwelling catheter;incontinence of urine Skin: States: no symptoms reported Neurological: States: no symptoms reported Past Medical History (General) - Patient Medical History Hx Seizures: No Hx Stroke: No Hx Dementia: No Hx Asthma: No Hx of COPD: Yes Hx Cardiac Disorders: Yes Hx Congestive Heart Failure: No Hx Pacemaker: No Hx Hypertension: Yes Hx Thyroid Disease: No Hx Diabetes: No Hx Gastroesophageal Reflux: No Hx Renal Disease: No Hx Cancer: No Hx of HIV: No Hx Hepatitis C: No Hx MRSA: No Hx Other PMH: Yes - Pulmonary embolus MRSA Source:: Wound - Vaccination History Hx Tetanus, Diphtheria Vaccination: No Hx Influenza Vaccination: Yes Hx Pneumococcal Vaccination: Yes Immunizations Up to Date: Yes - Social History Hx Tobacco Use: No Hx Chewing Tobacco Use: No Hx Alcohol Use: No Hx Substance Use: No Hx Substance Use Treatment: No Hx Depression: No Hx Physical Abuse: No Hx Emotional Abuse: No Hx Suspected Abuse: No - Activities of Daily Living Group Home/Assisted Living (if applicable):: [facility] - Female History Patient is a Female of Child Bearing Age (10 -59 yrs old): No Patient : No Family Medical History - Family History Mother Family History: Unknown Living Status: Age at (years of age): 26 Cause of : TB Hx Family Asthma: No Hx Family Congestive Heart Failure: No Hx Family Hypertension: Yes - Brother Hx Family Stroke: Yes - Aunt Hx Cardiac Disease: No Hx Family Diabetes: No Hx Family Cancer: Yes - Aunt Physical Exam - Physical Exam General Appearance: Alert, Comfortable, No apparent distress Eye Exam: bilateral normal Ears, Nose, Throat: hearing grossly normal, normal ENT inspection, normal pharynx Neck: non-tender, full range of motion, supple Respiratory: chest non-tender, lungs clear, normal breath sounds, no respiratory distress Cardiovascular/Chest: normal peripheral pulses, regular rate, rhythm, no murmur Peripheral Pulses: radial,right: 2+, radial,left: 2+ Gastrointestinal/Abdominal: normal bowel sounds, non tender, soft, no organomegaly Back Exam: no CVA tenderness, no vertebral tenderness Extremity: non-tender, no calf tenderness, pedal edema Neurologic: alert, oriented x 3 Skin Exam: normal color, warm/dry Lymphatic: no adenopathy Progress - Progress Progress: 06/16/18 23:58 Vital Signs - 24 hr 06/16/18 20:33 Temperature 99.8 F H Pulse Rate [ 91 H Right] Respiratory 18 Rate Blood Pressure 130/71 [Left Arm] O2 Sat by Pulse 94 L Oximetry - Results/Orders Results/Orders: 06/16/18 20:50 URINE CULTURE W/COLONY COUNT Stat 06/16/18 22:45 EKG STAT 06/17/18 05:45 EKG STAT Laboratory Results - last 24 hr 06/16/18 06/16/18 06/16/18 20:25 20:25 20:25 WBC 9.8 RBC 3.45 L Hgb 10.7 L Hct 32.6 L MCV 94.4 H MCH 31.0 MCHC 32.9 L RDW 15.8 H Plt Count 344 MPV 6.7 L Absolute Neuts (auto) 7.90 H Absolute Lymphs (auto) 0.60 L Absolute Monos (auto) 1.20 H Absolute Eos (auto) 0.00 Absolute Basos (auto) 0.00 Neutrophils % 80.2 H Lymphocytes % 6.4 L Monocytes % 12.7 H Eosinophils % 0.2 L Basophils % 0.5 PT INR Sodium 138 Potassium 3.2 L Chloride 103 Carbon Dioxide 26 Anion Gap 12.2 BUN 26 H Creatinine 1.32 H BUN/Creatinine Ratio 19.7 Random Glucose 148 H Serum Osmolality 283.2 Lactic Acid Calcium 8.2 L Total Bilirubin 0.5 AST 43 H ALT 27 Alkaline Phosphatase 132 H Creatine Kinase 46 CK-MB (CK-2) 1.0 CK-MB (CK-2) % Not Reportable Troponin I 0.06 H Serum Total Protein 6.1 L Albumin 2.7 L Globulin 3.4 Albumin/Globulin Ratio 0.8 L Urine Color Urine Appearance Urine pH Ur Specific Jack Urine Protein Urine Glucose (UA) Urine Ketones Urine Blood Urine Nitrite Urine Bilirubin Urine Urobilinogen Ur Leukocyte Esterase Urine RBC Urine WBC Ur Epithelial Cells Amorphous Sediment Urine Bacteria Hyaline Casts Urine Mucus Phenytoin 9.4 L 06/16/18 06/16/18 06/16/18 20:50 22:42 23:25 WBC RBC Hgb Hct MCV MCH MCHC RDW Plt Count MPV Absolute Neuts (auto) Absolute Lymphs (auto) Absolute Monos (auto) Absolute Eos (auto) Absolute Basos (auto) Neutrophils % Lymphocytes % Monocytes % Eosinophils % Basophils % PT 18.2 H INR 1.83 H Sodium Potassium Chloride Carbon Dioxide Anion Gap BUN Creatinine BUN/Creatinine Ratio Random Glucose Serum Osmolality Lactic Acid 0.8 Calcium Total Bilirubin AST ALT Alkaline Phosphatase Creatine Kinase CK-MB (CK-2) CK-MB (CK-2) % Troponin I Serum Total Protein Albumin Globulin Albumin/Globulin Ratio Urine Color Yellow Urine Appearance Sl cloudy Urine pH 5.0 Ur Specific Jack 1.020 Urine Protein 30 Urine Glucose (UA) Negative Urine Ketones Negative Urine Blood Moderate H Urine Nitrite Negative Urine Bilirubin Negative Urine Urobilinogen 0.2 Ur Leukocyte Esterase Small H Urine RBC 5-10 H Urine WBC 5-10 H Ur Epithelial Cells 1-3 Amorphous Sediment 2+ Urine Bacteria 2+ H Hyaline Casts 0-1 Urine Mucus Large Phenytoin 06/16/18 06/17/18 23:50 06:02 WBC RBC Hgb Hct MCV MCH MCHC RDW Plt Count MPV Absolute Neuts (auto) Absolute Lymphs (auto) Absolute Monos (auto) Absolute Eos (auto) Absolute Basos (auto) Neutrophils % Lymphocytes % Monocytes % Eosinophils % Basophils % PT INR Sodium Potassium Chloride Carbon Dioxide Anion Gap BUN Creatinine BUN/Creatinine Ratio Random Glucose Serum Osmolality Lactic Acid Calcium Total Bilirubin AST ALT Alkaline Phosphatase Creatine Kinase CK-MB (CK-2) CK-MB (CK-2) % Troponin I 0.05 0.05 Serum Total Protein Albumin Globulin Albumin/Globulin Ratio Urine Color Urine Appearance Urine pH Ur Specific Jack Urine Protein Urine Glucose (UA) Urine Ketones Urine Blood Urine Nitrite Urine Bilirubin Urine Urobilinogen Ur Leukocyte Esterase Urine RBC Urine WBC Ur Epithelial Cells Amorphous Sediment Urine Bacteria Hyaline Casts Urine Mucus Phenytoin - EKG/XRAY/CT EKG: Sinus, RBBB Comments: HR-72 XRAY: hip - shoulder-degenerative changes ,no fracture - Additional EKG/XRAY/Consults EKG #2: Sinus, RBBB Comments: HR-89 Departure - Departure Clinical Impression: Elevated troponin level, History of atrial fibrillation, History of pulmonary embolus (PE) Fever Qualifiers: Fever type: unspecified Qualified Code(s): R50.9 - Fever, unspecified Time of Disposition: 06:55 Disposition: Discharge to SNF Condition: Fair Departure Forms: ED Discharge - Pt. Copy, Patient Portal Self Enrollment Referrals: Rojelio Mcdermott MD [Primary Care Provider] - 1-2 Weeks Home Medications: Ambulatory Orders Allopurinol [Zyloprim] 300 mg PO DAILY 03/31/14 Levothyroxine Sodium [Synthroid] 0.175 mg PO ACBK #0 tab 04/01/14 Digoxin 0.125 mg PO BEDTIME 12/02/14 Indomethacin 50 mg PO DAILY PRN 12/02/14 Phenytoin Sodium Extended 300 mg PO BEDTIME 12/02/14 Potassium Gluconate 595 mg PO DAILY 12/02/14 Saw Uneeda (Serenoa Repens) [Saw Uneeda] 900 mg PO DAILY 12/02/14 Esomeprazole Magnesium [Nexium] 40 mg PO DAILY #30 cap 12/03/14 Furosemide [Lasix] 40 mg PO DAILY PRN 06/23/15 Bifidobacterium Infantis [Align] 4 mg PO BID 12/26/17 Cyclobenzaprine HCl [Flexeril] 10 mg PO Q8H #10 tab 12/27/17 Additional Instructions: Continue with all medications;Return to ER as needed
--- NOTE | 2018-06-16 22:30 | RAD ---
PROCEDURE: XR CHEST 1 VIEW HISTORY: fever COMPARISON: 05/26/2018 TECHNIQUE: Single projection of the chest was done. FINDINGS: There are underlying changes of COPD . There are no discrete airspace infiltrates, pneumothoraces or pleural effusions. The pulmonary vascularity is normal. The cardiomediastinal silhouette is stable. IMPRESSION: There is no acute pleural-parenchymal process seen in the imaged lung martines. Location of Interpretation: Teleradiology Electronically signed by: Jordy Luque MD 06/16/2018 10:28 PM CDT Workstation: [id number]
--- NOTE | 2018-06-16 22:37 | RAD ---
PROCEDURE: Hip,Right 2 Views Clinical History: pain in rt hip Indication: Right hip pain Comparison: 12/27/2017. Technique: Two views of the right hip. Findings: There is no evidence of acute fractures or dislocations involving the bones of the right hip joint and the adjacent pelvic bones. There is mild reduction in the medial femoral acetabular joint space suggestive of underlying degenerative change Impression: Mild degenerative change in the right hip with mild reduction in the medial femoral acetabular joint space Location of Interpretation: Teleradiology Electronically signed by: Jordy Luque MD 06/16/2018 10:35 PM CDT Workstation: [id number]
--- NOTE | 2018-06-16 22:38 | RAD ---
EXAM DESCRIPTION: Shoulder,Right 2 or More Views CLINICAL HISTORY: 87 years Male, shoulder pain COMPARISON: Right shoulder radiographs July 02, 2016 FINDINGS: Degenerative glenohumeral joint space narrowing is demonstrated with mild sclerosis and osteophyte formation. No obvious acute fracture or dislocation. There are moderate degenerative changes of the acromioclavicular joint. Calcification along the rotator cuff tendon demonstrated suggestive of calcific tendinosis. IMPRESSION: 1. No acute findings. 2. Degenerative changes. Electronically signed by: Bello Avina MD 06/16/2018 10:37 PM CDT
[2018-06-17] MEDS ORDERED: ASPIRIN TABLET 325 MG TAB PO ONE (00:04)
[2018-06-17] MEDS ORDERED: MORPHINE SULFATE INJ 10 MG/ML VIAL IV ONE (01:45)
[2018-06-17 09:05] VITALS: BP 148/70; TEMP 98.3; O2SAT 96
== END 2018-06-17 09:05 ==
LOC: ER 20:21
DX: R50.9 Fever, unspecified (principal); R79.89 Other specified abnormal findings of blood chemistry; I48.91 Unspecified atrial fibrillation; I45.10 Unspecified right bundle-branch block; M16.11 Unilateral primary osteoarthritis, right hip; M19.011 Primary osteoarthritis, right shoulder; I10 Essential (primary) hypertension; J44.9 Chronic obstructive pulmonary disease, unspecified; Z86.711 Personal history of pulmonary embolism; Z79.899 Other long term (current) drug therapy; Z88.5 Allergy status to narcotic agent

== ENCOUNTER → 2018-08-07 | Outpatient (CLI) | payer MEDICARE | LOC: GMAH 10:52 | PROVIDERS: ATTEND Family Medicine | DX: D63.1 Anemia in chronic kidney disease (principal); N18.9 Chronic kidney disease, unspecified; I48.91 Unspecified atrial fibrillation; R94.5 Abnormal results of liver function studies; E78.5 Hyperlipidemia, unspecified; G40.909 Epilepsy, unspecified, not intractable, without status epilepticus; Z79.899 Other long term (current) drug therapy ==

== ENCOUNTER → 2018-08-20 | Outpatient (CLI) | payer MEDICARE | LOC: YCHH 13:56 | PROVIDERS: ATTEND Family Medicine | DX: N39.0 Urinary tract infection, site not specified (principal) ==

== ENCOUNTER 2018-09-30 17:46 | Emergency (ER) | payer MEDICARE ==
[2018-09-30] MEDS ORDERED: SODIUM CHLORIDE 0.9% 500ML 500 ML IVS ONE (18:39)
[2018-09-30] MEDS ORDERED: SUCRALFATE 1 GM/10 ML 1 GM UD PO ONE (18:39)
[2018-09-30] MEDS ORDERED: PANTOPRAZOLE SODIUM IV 40 MG VIAL IV ONE (18:40)
[2018-09-30] MEDS ORDERED: SODIUM CHLORIDE 0.9% 50ML 50 ML ONE (18:44)
--- NOTE | 2018-09-30 18:47 | ED.PDOC ---
History of Present Illness - General Chief Complaint: GI Problem Stated Complaint: coffee ground emesis Time Seen by Provider: 09/30/18 18:11 Information Source: patient, family Exam Limitations: no limitations - History of Present Illness Initial Comments: COFFEE GROUND EMESIS LAST NIGHT AND TODAY. NO BRBPR. NO ABD PAIN IN ER. HAD ABD PAIN PRIOR TO EMESIS BUT NONE AFTERWARD. MILD SOB TONIGHT. ON COUMADIN FOR H/O P.E. H/O GERD. Timing/Duration: intermittent Improving Factors: nothing Worsening Factors: nothing Associated Symptoms: denies symptoms Review of Systems - Review of Systems Constitutional: States: no symptoms reported EENTM: States: no symptoms reported Respiratory: States: no symptoms reported Cardiology: States: no symptoms reported Gastrointestinal/Abdominal: States: vomiting. Denies: abdominal pain, constipation, diarrhea, nausea Genitourinary: States: no symptoms reported Musculoskeletal: States: no symptoms reported Skin: States: no symptoms reported Neurological: States: no symptoms reported Endocrine: States: no symptoms reported Hematologic/Lymphatic: States: no symptoms reported All other Systems: Reviewed and Negative Past Medical History (General) - Patient Medical History Hx Seizures: No Hx Stroke: No Hx Dementia: No Hx Asthma: No Hx of COPD: Yes Hx Cardiac Disorders: Yes Hx Congestive Heart Failure: No Hx Pacemaker: No Hx Hypertension: Yes Hx Thyroid Disease: No Hx Diabetes: No Hx Gastroesophageal Reflux: No Hx Renal Disease: No Hx Cancer: No Hx of HIV: No Hx Hepatitis C: No Hx MRSA: No MRSA Source:: Wound Surgical History: appendectomy - Vaccination History Hx Tetanus, Diphtheria Vaccination: No Hx Influenza Vaccination: Yes Hx Pneumococcal Vaccination: Yes Immunizations Up to Date: No - Social History Hx Tobacco Use: No Hx Chewing Tobacco Use: No Hx Alcohol Use: No Hx Substance Use: No Hx Substance Use Treatment: No Hx Depression: No Hx Physical Abuse: No Hx Emotional Abuse: No Hx Suspected Abuse: No - Female History Patient : No Family Medical History - Family History Mother Family History: Unknown Living Status: Age at (years of age): 26 Cause of : TB Hx Family Asthma: No Hx Family Congestive Heart Failure: No Hx Family Hypertension: Yes - Brother Hx Family Stroke: Yes - Aunt Hx Cardiac Disease: No Hx Family Diabetes: No Hx Family Cancer: Yes - Aunt Physical Exam - Physical Exam General Appearance: Alert, Frail Eyes, Ears, Nose, Throat Exam: PERRL/EOMI, normal ENT inspection, pharynx normal - NO BLOOD PRESENT. Neck: non-tender, full range of motion Respiratory: chest non-tender, lungs clear, normal breath sounds, no respiratory distress, no accessory muscle use Cardiovascular/Chest: no murmur, tachycardia Peripheral Pulses: No deficit Gastrointestinal/Abdominal: normal bowel sounds, non tender, soft, no organomegaly, no pulsatile mass Back Exam: normal inspection, no CVA tenderness Extremity: normal range of motion, normal inspection Neurologic: no motor/sensory deficits, normal mood/affect Skin Exam: normal color, warm/dry Lymphatic: no adenopathy Progress - Progress Progress: 09/30/18 20:08 COFFEE GROUND EMESIS (UPPER GI) - GAVE PROTONIX 80 IV AND CARAFATE. LIKELY BLEEDING FROM CHRONIC COUMADIN AND H/O GERD. RECOMMEND EVENTUAL GI SCOPE. DEHYDRATION, HYPOTENSION, CR 1.91 (ARF; CR 1.2 2 MOS AGO), MILD SINUS TACHYCARDIA - 500 ML BOLUS X 2. RLL PNE, FEVER, SOB, HYPOXIA - ROCEPHIN. AZITHROMYCIN CONTRAINDICATED WITH HIS DIGOXIN. ON COUMADIN FOR H/O PE - INR 1.33 SUBTHERAPEUTIC. ANEMIA I SPOKE WITH DR. LACEY, [facility], WHO IS ACCEPTING CARE OF THE PT. THANK YOU DR TOLENTINO AND [facility]. Departure - Departure Clinical Impression: Hypoxia, Sinus tachycardia, Subtherapeutic international normalized ratio (INR), Hypovolemia Hematemesis Qualifiers: Nausea presence: without nausea Qualified Code(s): K92.0 - Hematemesis Dyspnea Qualifiers: Dyspnea type: unspecified Qualified Code(s): R06.00 - Dyspnea, unspecified Pneumonia Qualifiers: Pneumonia type: due to unspecified organism Laterality: right Lung location: lower lobe of lung Qualified Code(s): J18.1 - Lobar pneumonia, unspecified organism Fever Qualifiers: Fever type: due to other condition Qualified Code(s): R50.81 - Fever presenting with conditions classified elsewhere Anemia Qualifiers: Anemia type: unspecified type Qualified Code(s): D64.9 - Anemia, unspecified Acute renal failure Qualifiers: Acute renal failure type: unspecified Qualified Code(s): N17.9 - Acute kidney failure, unspecified Hypotension Qualifiers: Hypotension type: hypotension due to hypovolemia Qualified Code(s): I95.89 - Other hypotension; E86.1 - Hypovolemia Disposition: Transfer to Hospital Condition: Fair Departure Forms: ED Discharge - Pt. Copy, Patient Portal Self Enrollment Referrals: Rojelio Mcdermott MD [Primary Care Provider] - 1-2 Weeks Home Medications: Ambulatory Orders Allopurinol [Zyloprim] 300 mg PO DAILY 03/31/14 Levothyroxine Sodium [Synthroid] 0.175 mg PO ACBK #0 tab 04/01/14 Digoxin 0.125 mg PO BEDTIME 12/02/14 Indomethacin 50 mg PO DAILY PRN 12/02/14 Phenytoin Sodium Extended 300 mg PO BEDTIME 12/02/14 Potassium Gluconate 595 mg PO DAILY 12/02/14 Saw [place] (Serenoa Repens) [Saw [place]] 900 mg PO DAILY 12/02/14 Esomeprazole Magnesium [Nexium] 40 mg PO DAILY #30 cap 12/03/14 Furosemide [Lasix] 40 mg PO DAILY PRN 06/23/15 Bifidobacterium Infantis [Align] 4 mg PO BID 12/26/17 Cyclobenzaprine HCl [Flexeril] 10 mg PO Q8H #10 tab 12/27/17 Transfer to Outside Facility - Transfer Information Accepting Provider:: DR. TOLENTINO Accepting Facility: [facility] Reason for Transfer: specialized care not available
--- NOTE | 2018-09-30 18:55 | RAD ---
EXAM DESCRIPTION: Chest,1 View CLINICAL HISTORY: 88 years Male HEMATEMESIS COMPARISON: 06/16/2018. FINDINGS: Stable cardiomediastinal silhouette. Atherosclerotic calcifications in the thoracic aorta. There are infiltrates overlying the right lower lung suggesting pneumonia. No large pleural effusions. No pneumothorax. Old left rib fractures. Degenerative changes in the left shoulder. IMPRESSION: Infiltrate in the right lower lung likely from pneumonia. Follow-up is recommended following treatment. Electronically signed by: Carlos Baires MD 09/30/2018 6:53 PM [employer] APPLICATION DEVELOPER
[2018-09-30] MEDS ORDERED: SODIUM CHLORIDE 0.9% 1000ML 500 ML IVS ONE (19:53)
[2018-09-30] MEDS ORDERED: cefTRIAXone SODIUM 1 GM in SODIUM CHL 0.9% 50ML MIN-BAG+ 50 ML IVPB ONE (19:55)
[2018-09-30] MEDS ORDERED: SODIUM CHL 0.9% 50ML MIN-BAG+ 50 ML IVPB ONE (20:00)
[2018-09-30] MEDS ORDERED: cefTRIAXone SODIUM 1 GM VIAL ONE (20:00)
[2018-09-30 20:47] VITALS: TEMP 100.6
[2018-09-30 21:53] VITALS: BP 100/58; O2SAT 89
== END 2018-09-30 21:52 | disposition short-term general hospital (02) ==
LOC: ER 17:46
DX: J18.9 Pneumonia, unspecified organism (principal); K92.0 Hematemesis; N17.9 Acute kidney failure, unspecified; D64.9 Anemia, unspecified; I95.89 Other hypotension; E86.1 Hypovolemia; R00.0 Tachycardia, unspecified; R79.1 Abnormal coagulation profile; R09.02 Hypoxemia; K21.9 Gastro-esophageal reflux disease without esophagitis; J44.9 Chronic obstructive pulmonary disease, unspecified; I51.9 Heart disease, unspecified; I10 Essential (primary) hypertension; Z79.01 Long term (current) use of anticoagulants
CPT/HCPCS: 36415; 71045; 80053; 85025; 85610; 85730; 87040; 93005; A4216; J0696; J7030; J7040; J7050

== ENCOUNTER → 2018-11-05 | Outpatient (CLI) | payer MEDICARE | LOC: LAB.NP 14:15 | PROVIDERS: ATTEND Urology | DX: R31.0 Gross hematuria (principal) ==

== ENCOUNTER → 2018-11-18 | Outpatient (CLI) | payer MEDICARE ==
--- NOTE | 2018-11-19 11:41 | RAD ---
EXAM DESCRIPTION: Barium Swallow: Rad-Fluoroscopy. CLINICAL HISTORY: DYSPHAGIA COMPARISON: Chest radiograph 1 view 09/30/2018. TECHNIQUE: The patient swallowed barium pill with water. The patient swallowed gas-producing granules, water, and heavy density barium under fluoroscopic visualization. The images were obtained with the patient upright and horizontal. Patient drank medium density barium through a straw in the semi-prone position. 70 fluoroscopic cine loop images. 4 static fluoroscopic images. Total fluoroscopy time was 2.9 minutes. DAP: 19.3 Gy-cm2.. 126.33 mGy. FINDINGS: There was no delay in transit of the barium pill from the oral cavity to the stomach. 2-3 swallows needed to empty the oral cavity with each event. Patient demonstrated laryngeal aspiration followed by coughing. Primary peristaltic wave demonstrated in the proximal two thirds of the esophagus. However, in the distal third of the esophagus, secondary and tertiary contractions were noted with reflux from the distal third into the middle third. There is also minimal dilation of the distal esophagus but no significant obstruction or narrowing in the distal esophagus or gastroesophageal junction. No hiatal hernia demonstrated. In the semi-prone position with Valsalva maneuver and coughing, patient demonstrated gastroesophageal reflux to the level of the midesophagus. Stomach well-distended with gas and contrast material with no large mucosal lesions. Similar negative findings in the duodenum. IMPRESSION: 1. Delayed emptying of the barium oral contrast from the oral cavity requiring 2-3 swallows with each event. 2. Palmer laryngeal aspiration followed by coughing. Modified barium swallow evaluation by speech language pathologist is recommended. Patient was instructed to use chin tuck maneuver with solids and liquids. 3. Secondary and tertiary contractions noted in the distal third of the esophagus along with minimal dilation, but no obstruction. 4. Gastroesophageal reflux with maneuvers, to the mid esophagus in the prone position. Electronically signed by: Dane Dixon MD 11/19/2018 11:38 AM CDT
== END ==
LOC: RAD 09:00
PROVIDERS: ATTEND Family Medicine
DX: R13.14 Dysphagia, pharyngoesophageal phase (principal); K21.9 Gastro-esophageal reflux disease without esophagitis

== ENCOUNTER → 2018-11-19 | Outpatient (CLI) | payer MEDICARE | LOC: YCHH 10:19 | PROVIDERS: ATTEND Family Medicine | DX: D64.9 Anemia, unspecified (principal); Z13.228 Encounter for screening for other metabolic disorders; Z79.01 Long term (current) use of anticoagulants ==

== ENCOUNTER → 2019-02-10 | Outpatient (CLI) | payer MEDICARE | LOC: YCHH 11:15 | PROVIDERS: ATTEND Family Medicine | DX: D64.9 Anemia, unspecified (principal); R94.5 Abnormal results of liver function studies; Z79.01 Long term (current) use of anticoagulants; Z79.899 Other long term (current) drug therapy ==

== ENCOUNTER 2019-03-27 16:00 | Inpatient (IN) | payer MEDICARE ==
--- NOTE | 2019-03-27 16:17 | ED.PDOC ---
History of Present Illness - General Time Seen by Provider: 03/27/19 16:13 Source: Vital Signs reviewed, EMS notes reviewed Exam Limitations: clinical condition Additional Information: 88 YEAR OLD BROUGHT TO THE ER VIA AMBULANCE AFTER HE WAS FOUND UNRESPONSIVE IN THE FRONT YARD OF THE HOUSE WHERE HE RESIDES HE HAS HISTORY OF DEMENTIA SEIZURES ACUTE KIDNEY INJURY HIS BLOOD GLUCOSE IS NORMAL HE NOW APPEARS TO RESPOND BY NODDING HIS HEAD HOWEVER NO VERBAL RESPONSE HE APPEARS VERY DRY HYPERTHERMIC EMACIATED WITH DRY ORAL MUCOSA - History of Present Illness Timing/Duration: 1/2 hour Severity: moderate Improving Factors: nothing Worsening Factors: nothing Allergies/Adverse Reactions: Allergies Codeine Allergy (Verified 12/26/17 20:55) Sulfa Antibiotics Allergy (Verified 09/30/18 18:30) Home Medications: Ambulatory Orders Allopurinol [Zyloprim] 300 mg PO DAILY 03/31/14 Levothyroxine Sodium [Synthroid] 0.175 mg PO ACBK #0 tab 04/01/14 Digoxin 0.125 mg PO BEDTIME 12/02/14 Indomethacin 50 mg PO DAILY PRN 12/02/14 Phenytoin Sodium Extended 300 mg PO BEDTIME 12/02/14 Potassium Gluconate 595 mg PO DAILY 12/02/14 Saw Niles (Serenoa Repens) [Saw Niles] 900 mg PO DAILY 12/02/14 Esomeprazole Magnesium [Nexium] 40 mg PO DAILY #30 cap 12/03/14 Furosemide [Lasix] 40 mg PO DAILY PRN 06/23/15 Bifidobacterium Infantis [Align] 4 mg PO BID 12/26/17 Cyclobenzaprine HCl [Flexeril] 10 mg PO Q8H #10 tab 12/27/17 Review of Systems - Review of Systems Unable to Obtain Due To: condition, dementia - AMS Past Medical History (General) - Patient Medical History Hx Seizures: No Hx Stroke: No Hx Dementia: No Hx Asthma: No Hx of COPD: Yes Hx Cardiac Disorders: Yes Hx Congestive Heart Failure: No Hx Pacemaker: No Hx Hypertension: Yes Hx Thyroid Disease: No Hx Diabetes: No Hx Gastroesophageal Reflux: No Hx Renal Disease: No Hx Cancer: No Hx of HIV: No Hx Hepatitis C: No Hx MRSA: No MRSA Source:: Wound - Vaccination History Hx Tetanus, Diphtheria Vaccination: No Hx Influenza Vaccination: Yes Hx Pneumococcal Vaccination: Yes - Social History Hx Tobacco Use: No Hx Chewing Tobacco Use: No Hx Alcohol Use: No Hx Substance Use: No Hx Substance Use Treatment: No Hx Depression: No Hx Physical Abuse: No Hx Emotional Abuse: No Hx Suspected Abuse: No - Female History Patient : No Family Medical History - Family History Mother Family History: Unknown Living Status: Age at (years of age): 26 Cause of : TB Hx Family Asthma: No Hx Family Congestive Heart Failure: No Hx Family Hypertension: Yes - Brother Hx Family Stroke: Yes - Aunt Hx Cardiac Disease: No Hx Family Diabetes: No Hx Family Cancer: Yes - Aunt Physical Exam - Physical Exam General Appearance: Emaciated, Frail, Lethargic, Obvious distress Eye Exam: bilateral normal Ears, Nose, Throat: other - DRY MUCOSA Neck: supple Respiratory: chest non-tender, lungs clear, normal breath sounds, no respiratory distress, no accessory muscle use Cardiovascular/Chest: regular rate, rhythm, no edema, no gallop, no JVD, no murm ur Gastrointestinal/Abdominal: normal bowel sounds, non tender, soft, no organomegaly Extremity: non-tender, normal inspection, no pedal edema, other - RIGHT LOWER EXTREMITY THERE IS CELLULITIS ANTERIOR LEG THE SEPHENOUS VEIN IS THICK AND INDURATED SUGGESTIVE OF SUPERFICIAL THROMBOPHILIBITIS Progress - Results/Orders Results/Orders: Laboratory Tests 03/27/19 03/27/19 03/27/19 17:04 17:04 17:04 WBC 7.8 RBC 3.76 L Hgb 11.3 L Hct 33.5 L MCV 89.3 MCH 30.0 MCHC 33.7 RDW 16.5 H Plt Count 394 MPV 6.4 L Absolute Neuts (auto) 6.80 Absolute Lymphs (auto) 0.30 L Absolute Monos (auto) 0.60 Absolute Eos (auto) 0.00 Absolute Basos (auto) 0.10 Neutrophils % 86.3 H Lymphocytes % 3.9 L Monocytes % 8.3 Eosinophils % 0.4 L Basophils % 1.1 PT 34.7 H* INR 3.51 H* PTT (SP) 53.3 H* Sodium 144 Potassium 3.2 L Chloride 105 Carbon Dioxide 24 Anion Gap 18.2 H BUN 49 H Creatinine 2.06 H BUN/Creatinine Ratio 23.8 H Random Glucose 114 H Serum Osmolality 300.7 H Calcium 10.5 H Total Bilirubin 0.7 AST 42 ALT 20 Alkaline Phosphatase 179 H Serum Total Protein 6.9 Albumin 3.3 Globulin 3.6 H Albumin/Globulin Ratio 0.9 L CHEST X RAY RADIOLOGY REPORTS BILATERAL BASAL ATELECTASIS NO CONSOLIDATION 18.40 PATIENT IS LOOKING MUCH IMPROVED WITH FLUIDS NOW AWAKE ALERT AND RESPONDING APPROPRIATE CT HEAD NEG WILL DISCUSS WITH MR CÉSAR SHOEMAKER TO ADMIT TO TREAT 1 HEAT SYNCOPY 2 BRICE 3 CELLULITES RIGHT LEG Departure - Departure Clinical Impression: Heat syncope, Cellulitis of left lower leg, Acute kidney injury Time of Disposition: 18:49 - DISCUSSED WITH MR CÉSAR SHOEMAKER AT 7 PM Disposition: Admit Patient Condition: Good Referrals: Rojelio Mcdermott MD [Primary Care Provider] - 1-2 Weeks Home Medications: Ambulatory Orders Allopurinol [Zyloprim] 300 mg PO DAILY 03/31/14 Levothyroxine Sodium [Synthroid] 0.175 mg PO ACBK #0 tab 04/01/14 Digoxin 0.125 mg PO BEDTIME 12/02/14 Indomethacin 50 mg PO DAILY PRN 12/02/14 Phenytoin Sodium Extended 300 mg PO BEDTIME 12/02/14 Potassium Gluconate 595 mg PO DAILY 12/02/14 Saw Niles (Serenoa Repens) [Saw Niles] 900 mg PO DAILY 12/02/14 Esomeprazole Magnesium [Nexium] 40 mg PO DAILY #30 cap 12/03/14 Furosemide [Lasix] 40 mg PO DAILY PRN 06/23/15 Bifidobacterium Infantis [Align] 4 mg PO BID 12/26/17 Cyclobenzaprine HCl [Flexeril] 10 mg PO Q8H #10 tab 12/27/17
[2019-03-27] MEDS ORDERED: SODIUM CHLORIDE 0.9% 1000ML 1,000 ML IVS ONE (16:19)
--- NOTE | 2019-03-27 16:53 | CT ---
EXAM DESCRIPTION: Head CLINICAL HISTORY: AMS COMPARISON: MRI of the brain dated 12/30/2018. TECHNIQUE: Contiguous axial images through the head were obtained without intravenous contrast administration. Sagittal and coronal reconstructions were reviewed. FINDINGS: Moderate diffuse cortical volume loss is noted. Mild periventricular white matter ischemia. No evidence of acute major vascular territorial infarct or intraparenchymal hemorrhage. No intra-axial or extra-axial fluid collections are identified. The ventricles and cisterns appear normal in caliber. The sella and suprasellar regions appear normal. The structures of the posterior fossa are intact. The globes are intact bilaterally. The visualized paranasal sinuses and mastoid air cells are well-aerated. Review of the bones demonstrates no gross instability. IMPRESSION: No CT evidence of acute intracranial process. This exam was performed according to our departmental dose-optimization program, which includes automated exposure control, adjustment of the mA and/or kV according to patient size and/or use of iterative reconstruction technique. Electronically signed by: Mimi Garcia MD 03/27/2019 4:52 PM CDT
--- NOTE | 2019-03-27 18:03 | RAD ---
EXAM: Chest,1 View CLINICAL INDICATION: 88-year-old male. Rule out pneumonia. TECHNIQUE: Single view, AP portable chest was obtained. COMPARISON: 09/30/2018. FINDINGS: Stable mildly prominent cardiac and mediastinal silhouette. Heart size is mildly prominent. Tortuous atherosclerotic thoracic aorta. Low lung volumes with RIGHT basilar blunting of the costophrenic angle suggesting small pleural effusion. Patchy opacification the bilateral lower lobes raising the possibility of subsegmental atelectasis versus consolidation LEFT greater than RIGHT. No gross pneumothoraces. The visualized bones reveal degenerative change. IMPRESSION: 1. Faint bilateral basilar opacities LEFT greater than RIGHT suggesting subsegmental atelectasis versus consolidation. Please correlate with patient clinical findings and follow-up for resolution. 2. Trace left-sided pleural effusion. Electronically signed by: Alejandra Baca MD 03/27/2019 6:02 PM CDT
--- NOTE | 2019-03-27 22:07 | HP ---
SUPERVISING PHYSICIAN: Good Negro M.D. CHIEF COMPLAINT: Heat exposure with syncope. HISTORY OF PRESENT ILLNESS: Mr. Villalpando is an 88 year-old male patient that was brought to the . via ambulance after he was found unresponsive in his front yard of his house where he resides. He does have a longstanding history of dementia and apparently has had some seizures and was on Dilantin in the past. The patient is a very poor historian. He is alert but is not aware of his history and family was not available at time of History and Physical, therefore the history was obtained mainly from past medical records. On initial arrival the patient was responding by nodding his head and was nonverbal, but was found to be very dry and hypothermic, emaciated with dry mucosal membranes. His initial vital signs showed that he had an initial temperature of 104.3 with a heart rate of 125, blood pressure 135/67, respirations 30, satting 94% on room air. He was given a bolus of fluids which after initial bolus he started responding verbally and then was back to his baseline levels according to his family. His laboratory studies showed that he did have an acute kidney injury with a creatinine of 1.6. He was dehydrated obviously with an osmolality of 299, potassium 3.4, otherwise all other electrolytes were within normal limits. White count was within normal range with no left shift. The patient is now going to be admitted for heat exposure with syncope, uncertain etiology, with severe dehydration for close neurological monitoring and further evaluation. He was admitted in stable condition. PAST MEDICAL HISTORY: 1. Atrial fibrillation. 2. Benign prostatic hypertrophy. 3. Chronic renal insufficiency. 4. Congestive heart failure, uncertain etiology without any echocardiogram available at time of admission. 5. Gouty arthritis. 6. History of thyroid malignancy on Synthroid. 7. Hyperlipidemia. 8. Osteopenia. 9. Seizure disorder. PAST SURGICAL HISTORY: 1. Appendectomy. 2. 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 3. Thyroidectomy. 4. Neck surgery. 5. Left total knee arthroplasty. OUTPATIENT MEDICATIONS: Awaiting an updated list in the medical records. ALLERGIES: CODEINE. FAMILY HISTORY: Noncontributory. SOCIAL HISTORY: The patient is . He lives with his at home. He does have a history of cigar smoking but quit many years previously. He does not have a history of alcohol usage and does not use illicit drugs. REVIEW OF SYSTEMS: Unobtainable due to the patient's current mental status and dementia, and no family present. PHYSICAL EXAMINATION: VITAL SIGNS: Initial temperature 104.3, heart rate 125, blood pressure 135/67, respirations 30, satting 94% on room air. After fluid bolus and cooling efforts prior to admission, temperature was down to 98.5, heart rate was 89, blood pressure 124/74, respirations 22, satting 94% on 3 liters nasal cannula. Admission weight was 64.4 kg. GENERAL: On exam in the Emergency Room the patient was showing to be without any obvious acute distress. He was alert, very pleasant, somewhat confused. HEENT: Tympanic membranes were clear bilaterally. Oropharynx was pink with very dry mucosal membranes and cracked lips. NECK: Non-tender. Full range of motion with no jugular venous distention. CHEST: Lungs were clear to auscultation bilaterally without any obvious rhonchi, wheezing or rales. CARDIOVASCULAR: Slightly irregular rate and rhythm without appreciable murmurs, gallops, or rubs. ABDOMEN: Soft, non-tender. Positive bowel sounds. EXTREMITIES: No edema but there were areas of cellulitis on the anterior legs both left and right, more so on the right than the left with some induration, but no obvious areas of drainage. There was a small blister on the right leg with the cellulitis extending from the knee to the foot with no obvious abscess formation. NEUROLOGIC: He is alert but confused with a history of dementia. He answered questions appropriately as to who he was and where he was, but was confused to year. There was no family present at time of admission, but compared to initial presentation to the E. R. and admission to the Medical/Surgical floor the patient was appeared to be back to baseline mental status. LABORATORY: White count 7,800, hemoglobin 11.3, hematocrit 33.5, platelet count 394,000. Differential did show a slight left shift. Coagulation studies showed abnormal PT at 34.7, INR 3.51, PTT 53.3. Chemistries showed sodium 144, potassium 3.2, anion gap 18, BUN 49, creatinine 2.06 with osmolality 300. Calcium was slightly high at 10.5. Liver functions were all showing to be within normal limits. Urinalysis was pending. RADIOLOGY: Chest x-ray per radiology interpretation showed faint bilateral basilar opacities, left greater than right, suggesting subsegmental atelectasis versus consolidation with trace left pleural effusion. He also had a CT of the head without contrast and per radiology interpretation no CT evidence of acute intracranial process. ASSESSMENT: 1. Heat syncope due to heat exposure with initial temperature of 104.1 without obvious signs of seizure activity secondary to environmental exposure. 2. Acute kidney injury secondary to #1 with prerenal azotemia. 3. Cellulitis of both right and left lower extremities. 4. History of dementia. 5. History of atrial fibrillation with current controlled ventricular rate after IV fluids. 6. Coagulopathy, uncertain etiology. The patient's medications are not available, but he does have atrial fibrillation, awaiting list to see if he is actually on Coumadin. 7. History of congestive heart failure, uncertain etiology, without any signs of exacerbation and no echocardiogram at time of admission. 8. History of gouty arthritis. 9. History of thyroid malignancy on Synthroid. 10. Hyperlipidemia. 11. Osteopenia. 12. History of seizure disorders on Dilantin. PLAN: Mr. Villalpando is going to be admitted for close neurological and cardiac monitoring. He will be given fluids for his dehydration. Will follow his labs closely. Will await an updated list of medications. Given his current coagulation values, will hold off on DVT prophylaxis until we can find if he is actually on Coumadin, although his liver functions are showing to be within normal limits and he has no history of coagulopathies. 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 Will repeat labs in the morning. Will anticipate length of stay to be 2 to 3 days. Until we can transition him to outpatient management will continue to monitor and treat as needed. [facility][id number] [facility]
[2019-03-27] MEDS ORDERED: ACETAMINOPHEN 325 MG TAB PO PRN (22:32)
[2019-03-27] MEDS ORDERED: ONDANSETRON INJ 4 MG/2 ML VIAL IV PRN (22:32)
[2019-03-27] MEDS ORDERED: PANTOPRAZOLE INJECTION 40 MG in SODIUM CHLORIDE 0.9% 100ML 100 ML IVPB ONE (22:42)
[2019-03-27] MEDS: KCL 20MEQ/0.45% NS 1,000 ML IVS PRN (22:42)
[2019-03-27] MEDS: IV SET AND CAP CHANGE INJ INJ SCH (22:47)
[2019-03-27] MEDS ORDERED: VANCOMYCIN HCL INJ 1,500 MG in SODIUM CHLORIDE 0.9% 250ML 250 ML IVPB ONE (22:51)
[2019-03-27] MEDS ORDERED: SODIUM CHLORIDE 0.9% 100ML 0 ML IVPB ONE (22:52)
[2019-03-27] MEDS ORDERED: VANCOMYCIN PER PHARMACY IVPB SCH (23:00)
[2019-03-27] MEDS ORDERED: VANCOMYCIN HCL INJ 500 MG VIAL ONE (23:03)
[2019-03-27] MEDS ORDERED: SODIUM CHL 0.9% 250ML (AVIVA) 250 ML IVPB ONE (23:03)
[2019-03-27] MEDS ORDERED: VANCOMYCIN HCL INJ 1,000 MG VIAL IVPB ONE (23:03)
[2019-03-28] MEDS ORDERED: raNITIdine HCL INJ 25 MG/ML VIAL ONE ×2 (05:56→19:51)
[2019-03-28] MEDS ORDERED: SODIUM CHLORIDE 0.9% 50ML 50 ML ONE ×2 (05:56→19:51)
[2019-03-28] MEDS ORDERED: raNITIdine HCL INJ 50 MG in SODIUM CHLORIDE 0.9% 50ML 50 ML IVPB SCH ×2 (06:00→09:00)
[2019-03-28] MEDS ORDERED: NON-FORMULARY MEDICATION 1 EA MIS (Levothyroxine Sodium [Synthroid] 175 MCG) PO SCH (11:30)
[2019-03-28] MEDS ORDERED: LEVOTHYROXINE SODIUM 0.1 MG TAB ONE ×2 (11:34→19:50)
[2019-03-28] MEDS ORDERED: LEVOTHYROXINE SODIUM 0.075 MG TAB ONE ×2 (11:34→19:49)
[2019-03-28] MEDS: BIFIDOBACTERIUM INFANTIS 4 MG CAP PO SCH ×2 (11:35→20:36)
[2019-03-28] MEDS: ALLOPURINOL 300 MG TAB PO SCH (11:36)
[2019-03-28] MEDS: LEVOTHYROXINE SODIUM 0.1 MG, LEVOTHYROXINE SODIUM 0.075 MG PO SCH ×2 (11:41)
[2019-03-28] MEDS: HYDROCORTISONE 2.5% TOP SCH ×2 (14:54→20:36)
--- NOTE | 2019-03-28 16:47 | PN ---
DATE: 03/28/19 SUPERVISING PHYSICIAN: Good Negro MD SUBJECTIVE: This morning the patient reports that he feels a little bit better. He rested last night. He does not feel like he is as quite as dry as yesterday. He has been afebrile since admission. He has had no nausea or vomiting, shortness of breath or chest pain. OBJECTIVE: VITAL SIGNS: Temperature 98.6, pulse 79, blood pressure 105/70, respirations 18, oxygen saturation 95% on 2 liters nasal cannula. I&O: Positive balance of 1610 with 2860 in and 550 out. Weight 64.4 kg. GENERAL: The patient continues to appear somewhat dehydrated, he is definitely malnourished but appears to be in no acute distress. He is very pleasant and alert. HEENT: Oral membranes today are still dry but no as severe as they were yesterday. NECK: Remains supple with full range of motion with no jugular venous distention. CHEST: Lungs today are clear bilaterally without rhonchi, rales, or wheezes. HEART: Slightly irregular rate and rhythm. ABDOMEN: Soft, non-tender, positive bowel sounds. EXTREMITIES: This morning he had some edema to the bilateral lower extremities, 1+ but the areas of erythema are now nearly gone. He just has a slight bullae to the right pang but no signs of abscess formation. NEUROLOGIC: He is alert and oriented to himself but not time and place. He appears to be at his baseline level mentally. He has had no seizure activity. LABORATORY: White count 8,700, hemoglobin stable at 10.1 and hematocrit 30.3 with a platelet count of 297,000. Differential today shows to be with a slight left shift. INR is down to 2.95. Dig level normal at 1.5 and phenytoin slightly low at 6.8. His chemistries show sodium 144 with potassium increased to 3.4. BUN 49, creatinine has gone down to 1.66. Serum osmolality still elevated at 299. Liver functions remain in normal limits. ASSESSMENT: 1. Heat syncope due to heat exposure with initial temperature of 104.1 without obvious signs of seizure activity secondary to environmental exposure. No longer showing any fevers, improving with IV fluid. 2. Acute kidney injury secondary to #1 with prerenal azotemia showing improvement with IV fluid. 3. Cellulitis of both right and left lower extremities showing good response to antibiotics including Rocephin and vancomycin. 4. History of dementia. 5. History of atrial fibrillation with current controlled ventricular rate after IV fluids. 6. Coagulopathy, uncertain etiology. The patient's medications are not available, but he does have atrial fibrillation, awaiting list to see if he is actually on Coumadin. 7. History of congestive heart failure, uncertain etiology, without any signs of exacerbation and no echocardiogram at time of admission. 8. History of gouty arthritis. 9. History of thyroid malignancy on Synthroid. 10. Hyperlipidemia. 11. Osteopenia. 12. History of seizure disorders on Dilantin. PLAN: We will continue with slow rehydration of the patient today. We resumed his medications as appropriate since they were updated. Will hold his Coumadin today as it was still slightly elevated. Will continue with IV antibiotics with Rocephin and vancomycin and encourage him to have good pulmonary hygiene. Will recheck labs in the morning. He is on vancomycin per pharmacy protocol. Until we can transition to outpatient management, we will continue to monitor and treat as needed. #[id number] [facility]
[2019-03-28] MEDS ORDERED: SODIUM CHLORIDE 0.9% 250ML 250 ML ONE (19:49)
[2019-03-28] MEDS ORDERED: VANCOMYCIN HCL INJ 500 MG VIAL ONE (19:49)
[2019-03-28] MEDS: KCL 20MEQ/0.45% NS 1,000 ML IVS PRN (19:58)
[2019-03-28] MEDS: DONEPEZIL HCL 5 MG TAB PO SCH (20:36)
[2019-03-28] MEDS: DIGOXIN 0.125 MG TAB PO SCH (20:36)
[2019-03-28] MEDS ORDERED: PHENYTOIN SODIUM CAP (ER DISP) 100 MG CAP PO SCH (21:00)
[2019-03-28] MEDS: VANCOMYCIN HCL INJ 750 MG in SODIUM CHLORIDE 0.9% 250ML 250 ML IVPB SCH (22:35)
[2019-03-29] MEDS: raNITIdine HCL INJ 50 MG in SODIUM CHLORIDE 0.9% 50ML 50 ML IVPB SCH ×2 (06:15→08:47)
[2019-03-29] MEDS: LEVOTHYROXINE SODIUM 0.1 MG, LEVOTHYROXINE SODIUM 0.075 MG PO SCH ×2 (06:16)
[2019-03-29] MEDS ORDERED: SODIUM CHLORIDE 0.9% 50ML 50 ML ONE (07:07)
[2019-03-29] MEDS ORDERED: raNITIdine HCL INJ 25 MG/ML VIAL ONE (07:07)
[2019-03-29] MEDS: HYDROCORTISONE 2.5% TOP SCH ×2 (08:47→20:42)
[2019-03-29] MEDS: BIFIDOBACTERIUM INFANTIS 4 MG CAP PO SCH ×2 (08:47→20:41)
[2019-03-29] MEDS: ALLOPURINOL 300 MG TAB PO SCH (08:47)
[2019-03-29] MEDS ORDERED: SODIUM CHLORIDE 0.9% (FLUSH) 10 ML SYG IV ONE (11:59)
[2019-03-29] MEDS: WARFARIN SODIUM 2.5 MG TAB PO SCH (12:49)
--- NOTE | 2019-03-29 17:20 | PN ---
DATE: 03/29/19 SUPERVISING PHYSICIAN: Good Negro MD SUBJECTIVE: The patient looks much better today. He is no longer appears to be dehydrated. He is in good spirits. He has remained afebrile. He has had no shortness of breath, chest pain, nausea or vomiting. He did have a little desaturation during ambulation today, dropped into the low 80s. Also discussed with his daughter the concern for Mr. Villalpando going home and his episodes of falling. She also notes that her mother has also been falling and is concerned for their safety at home. I did discuss what the plan of care would include, we can get a social director consultation tomorrow as well as physical therapy evaluation and further assess for safety prior to discharge. At this point, the patient is showing to be nearly clinically cleared medically but would certainly benefit from close monitoring and further evaluation given his advanced age and history. OBJECTIVE: VITAL SIGNS: He remains afebrile. Temperature 98.4, pulse 80, blood pressure 105/66, respirations 18, oxygen saturation 93% on 2 liters nasal cannula. During ambulation study he started out with 90% on room air at rest. During exercise he showed a desaturation to 85% and ambulated for approximately 6 minutes, 300 C and required 2 liters nasal cannula for recovery which he came up to 93%. Weight is 65.4 kg. GENERAL: The patient is resting comfortably, he appears to be in no acute distress. He is alert and very pleasant to converse with. . CHEST: Lung sounds clear to auscultation, slightly diminished towards the bases bilaterally. HEART: Slightly irregular rate and rhythm. ABDOMEN: Soft, non-tender, positive bowel sounds. EXTREMITIES: Lower extremities do show continued edema more so on the right than left with 1 to 2+ bilaterally. No calf pain reported on palpation. He does continue to have blisters on both anterior shins and erythema is showing to no longer be present and improving with antibiotics. NEUROLOGIC: He is alert and oriented x 3.. LABORATORY: White count 9,000, hemoglobin 9.5, hematocrit 28.5, platelet count 287,000. Differential today shows to be without a left shift. Coagulation studies showed his INR is down to 1.93. Chemistries show a sodium of 138, potassium up to 3.5, BUN down to 39, creatinine down to 1.62. Calcium 9.1, CPK 37. . ASSESSMENT: 1. Syncopal episode secondary to heat exposure with initial body temperature of 104.1, responding to cooling measures and IV fluids, now near baseline levels and euvolemic. and been afebrile. 2. Acute kidney injury secondary to #1 with prerenal azotemia improving with IV fluids, likely some component of chronic renal insufficiency. . 3. Cellulitis of both lower extremities responding well to antibiotics.. 4. Lower extremity edema with a history of congestive heart failure and no current echocardiogram per chart review with no signs of exacerbation.. Left leg shows slight increase in edema compared to the right but patient remains on Coumadin but will evaluate with ultrasound for possible DVT. 5. Chronic atrial fibrillation with controlled ventricular rate on both dig and Coumadin. . 6. Coagulopathy secondary to Coumadin therapy with patient now showing back to therapeutic levels with no signs of acute bleeding. . 7. Anemia with a normocytic normochromic presentation with patient on Warfarin but no signs of acute loss. 8. Hypoxia with ambulation requiring further evaluation for possible home 02. 9. Significant deconditioning resulting in multiple falls, awaiting a physical therapy consultation to insure patient's safety once discharged. 10. History of gouty arthritis, no signs of exacerbation. 11. History of thyroid malignancy on Synthroid. 12. Hyperlipidemia. 13. Osteopenia. 14. History of seizure disorders on Dilantin. PLAN: We will continue with current plan today but will saline lock him later today if he is showing to be more euvolemic. Giving his INR is now therapeutic, we will go ahead and restart his Coumadin dosing as prior to hospitalization. He remains on Rocephin and vancomycin for treatment of underlying cellulitis and is showing good improvement. We continued to encourge good pulmonary hygiene. He is on Zantac for GI prophylaxis. I have ordered a Curing Room Worker and physical therapy consultation. He does have Home Health already with [facility] but certainly would benefit from reevaluation and possibly some outpatient therapy. Will await those consultations. I ordered a Doppler study of his right lower extremity to rule out DVT. Will also do an echocardiogram to further assess his ejection fraction and given that he is showing a need for oxygen and there is no current echocardiogram available. Should he show continued stability and improvement, I would anticipate he would discharge tomorrow but we will wait for the consultation. Until then, we will continue to monitor and treat as necessary. #[id number] [facility]
[2019-03-29] MEDS ORDERED: SODIUM CHLORIDE 0.9% 250ML 250 ML ONE (19:48)
[2019-03-29] MEDS ORDERED: LEVOTHYROXINE SODIUM 0.075 MG TAB ONE (19:48)
[2019-03-29] MEDS ORDERED: LEVOTHYROXINE SODIUM 0.1 MG TAB ONE (19:48)
[2019-03-29] MEDS ORDERED: VANCOMYCIN HCL INJ 1,000 MG VIAL IVPB ONE (19:49)
[2019-03-29] MEDS: DIGOXIN 0.125 MG TAB PO SCH (20:41)
[2019-03-29] MEDS: PHENYTOIN SODIUM CAP EXTENDED 100 MG CAP PO SCH (20:41)
[2019-03-29] MEDS: DONEPEZIL HCL 5 MG TAB PO SCH (20:42)
[2019-03-29] MEDS: VANCOMYCIN HCL INJ 750 MG in SODIUM CHLORIDE 0.9% 250ML 250 ML IVPB SCH (23:28)
[2019-03-30] MEDS: LEVOTHYROXINE SODIUM 0.1 MG, LEVOTHYROXINE SODIUM 0.075 MG PO SCH ×2 (06:22)
[2019-03-30] MEDS ORDERED: SODIUM CHLORIDE 0.9% 50ML 50 ML ONE (07:33)
[2019-03-30] MEDS ORDERED: raNITIdine HCL INJ 25 MG/ML VIAL ONE (07:33)
[2019-03-30] MEDS: raNITIdine HCL INJ 50 MG in SODIUM CHLORIDE 0.9% 50ML 50 ML IVPB SCH (09:09)
[2019-03-30] MEDS: ALLOPURINOL 300 MG TAB PO SCH (09:10)
[2019-03-30] MEDS: HYDROCORTISONE 2.5% TOP SCH ×2 (09:10→21:10)
[2019-03-30] MEDS: BIFIDOBACTERIUM INFANTIS 4 MG CAP PO SCH ×2 (09:11→21:09)
[2019-03-30] MEDS: WARFARIN SODIUM 5 MG TAB PO SCH (11:36)
--- NOTE | 2019-03-30 13:11 | PN ---
SUPERVISING PHYSICIAN: Alvaro Anglin MD DATE: 03/30/19 SUBJECTIVE: The patient is sitting up in bed. His nurse is trying to give him his pills. He has been cautioned about swallowing properly due to his aspiration pneumonia. He does complain of some weakness and his daughter is quite concerned that he is not safe to go home. We discussed that he would have some testing done today and that he would go home on home oxygen. She also asked us to make sure the patient was safe to go home and he and his have a difficult time caring for each other. There are no complaints of chest pain, nausea or vomiting. OBJECTIVE: VITAL SIGNS: Temperature 98. Heart rate 78. Blood pressure 112/62. Respiratory rate 20. O2 saturation 94% on 2 liters nasal cannula. RESPIRATORY: Diminished breath sounds throughout. CARDIAC: Regular rate, irregular rhythm. GASTROINTESTINAL: Abdomen is soft, nondistended, nontender. Bowel sounds are positive. GENITOURINARY: The scrotal area is very enlarged. It is edematous. The scrotum is elevated on a pillow. EXTREMITIES: Bilateral pedal edema with the right side at +2 and the left side with trace of edema. His bilateral pedal pulses are +2. NEUROLOGIC: Awake, alert and oriented times three. LABORATORY: Hemoglobin 9.7, hematocrit 29. Potassium slightly low at 3.5 with BUN 35, creatinine improved to 1.37. All other labs and films have been reviewed via the EMR. ASSESSMENT: 1. Syncopal episode secondary to heat exposure with initial body temperature of 104.1, responding to cooling measures and IV fluids, now near baseline levels and euvolemic and has been afebrile. 2. Acute kidney injury secondary to #1 with prerenal azotemia improving with IV fluids, likely some component of chronic renal insufficiency. 3. Cellulitis of both lower extremities responding well to antibiotics. 4. Lower extremity edema with a history of congestive heart failure and no current echocardiogram per chart review with no signs of exacerbation. Left leg shows slight increase in edema compared to the right but patient remains on Coumadin but will evaluate with ultrasound for possible deep venous thrombosis. 5. Chronic atrial fibrillation with controlled ventricular rate on both digoxin and Coumadin. 6. Coagulopathy secondary to Coumadin therapy with patient now showing back to therapeutic levels with no signs of acute bleeding. 7. Anemia with a normocytic/normochromic presentation with patient on warfarin but no signs of acute loss. 8. Hypoxia with ambulation requiring further evaluation for possible home O2. 9. Significant deconditioning resulting in multiple falls, awaiting a physical therapy consultation to ensure patient's safety once discharged. 10. History of gouty arthritis, no signs of exacerbation. 11. History of thyroid malignancy on Synthroid. 12. Hyperlipidemia. 13. Osteopenia. 14. History of seizure disorders on Dilantin. PLAN: We will continue present supportive care. He has an echocardiogram as well as a bilateral lower extremity Doppler to be done today. I will monitor for those results. I have ordered for his home oxygen to be set up prior to his discharge. I will need to talk to Physical Therapy as there are some concerns for his safely at home. Home Health Physical Therapist has already been contacted as well. His daughter would like to have some help at home or for them to be admitted to [facility]. He does have [facility]. Hopefully, we can discuss that with the patient and his tomorrow and depending on the results of his tests and how he improves clinically, he can be discharged tomorrow. Otherwise, we will continue to monitor the patient closely and follow as needed. #[id number] [facility]
[2019-03-30] MEDS ORDERED: SODIUM CHLORIDE 0.9% 250ML 250 ML ONE (19:51)
[2019-03-30] MEDS ORDERED: LEVOTHYROXINE SODIUM 0.075 MG TAB ONE (19:52)
[2019-03-30] MEDS ORDERED: LEVOTHYROXINE SODIUM 0.1 MG TAB ONE (19:52)
[2019-03-30] MEDS ORDERED: VANCOMYCIN HCL INJ 1,000 MG VIAL IVPB ONE (19:53)
[2019-03-30] MEDS: DIGOXIN 0.125 MG TAB PO SCH (21:09)
[2019-03-30] MEDS: DONEPEZIL HCL 5 MG TAB PO SCH (21:09)
[2019-03-30] MEDS: SODIUM CHLORIDE 0.9% (FLUSH) 10 ML SYG IV PRN (21:10)
[2019-03-30] MEDS: PHENYTOIN SODIUM CAP EXTENDED 100 MG CAP PO SCH (21:10)
[2019-03-30] MEDS: VANCOMYCIN HCL INJ 750 MG in SODIUM CHLORIDE 0.9% 250ML 250 ML IVPB SCH (23:38)
[2019-03-30] MEDS: IV SET AND CAP CHANGE INJ INJ SCH (23:38)
[2019-03-31] MEDS: LEVOTHYROXINE SODIUM 0.1 MG, LEVOTHYROXINE SODIUM 0.075 MG PO SCH ×2 (06:07)
[2019-03-31] MEDS ORDERED: SODIUM CHLORIDE 0.9% 50ML 50 ML ONE (08:24)
[2019-03-31] MEDS ORDERED: raNITIdine HCL INJ 25 MG/ML VIAL ONE (08:24)
[2019-03-31] MEDS: raNITIdine HCL INJ 50 MG in SODIUM CHLORIDE 0.9% 50ML 50 ML IVPB SCH (09:32)
[2019-03-31] MEDS: ALLOPURINOL 300 MG TAB PO SCH (09:32)
[2019-03-31] MEDS: HYDROCORTISONE 2.5% TOP SCH ×2 (09:32→20:22)
[2019-03-31] MEDS: BIFIDOBACTERIUM INFANTIS 4 MG CAP PO SCH ×2 (09:32→20:22)
[2019-03-31] MEDS: WARFARIN SODIUM 2.5 MG TAB PO SCH (12:53)
--- NOTE | 2019-03-31 18:54 | PN ---
DATE: 03/31/19 SUPERVISING PHYSICIAN: You Anglin M.D. SUBJECTIVE: The patient is sitting up in his chair. His is at the bedside. We discussed discharge planning at length and I explained that he is most likely not safe to go home even with his due to both of their advanced age as well as multiple health issues. We discussed having sitters at their home as well as going to an assisted living. They said they would speak to their daughter and decide what they were going to do. Later we did speak to the patient and his as well as his daughter, and they have planned to go home with help at that home. Beatrice Randhaway, [employer], has arranged for that care. He denies any shortness of breath, nausea, vomiting, diarrhea or constipation. OBJECTIVE: VITAL SIGNS: Temperature 97.5, heart rate 75, blood pressure 107/66, respiratory rate 18, O2 sat 96% on 2 liters nasal cannula. RESPIRATORY: Essentially clear to auscultation bilaterally. CARDIAC: Regular rate and rhythm. NEUROLOGIC: He is awake, alert and oriented times three. LABORATORY: There are no labs or films to report at this time. ASSESSMENT: 1. Syncopal episode secondary to heat exposure with initial body temperature of 104.1, responding to cooling measures and IV fluids, now near baseline levels and euvolemic and has been afebrile. 2. Acute kidney injury secondary to #1 with prerenal azotemia improving with IV fluids, likely some component of chronic renal insufficiency. 3. Cellulitis of both lower extremities responding well to antibiotics. 4. Lower extremity edema with a history of congestive heart failure and no current echocardiogram per chart review with no signs of exacerbation. Left leg shows slight increase in edema compared to the right but patient remains on Coumadin but will evaluate with ultrasound for possible deep venous thrombosis. 5. Chronic atrial fibrillation with controlled ventricular rate on both digoxin and Coumadin. 6. Coagulopathy secondary to Coumadin therapy with patient now showing back to therapeutic levels with no signs of acute bleeding. 7. Anemia with a normocytic/normochromic presentation with patient on warfarin but no signs of acute loss. 8. Hypoxia with ambulation requiring further evaluation for possible home O2. 9. Significant deconditioning resulting in multiple falls, awaiting a physical therapy consultation to ensure patient's safety once discharged. 10. History of gouty arthritis, no signs of exacerbation. 11. History of thyroid malignancy on Synthroid. 12. Hyperlipidemia. 13. Osteopenia. 14. History of seizure disorders on Dilantin. PLAN: We will continue present supportive care. At this point the patient can be discharged home, but due to his issues with safety at home, we will wait until he and his speak to several agencies that can assist with caregiving in the home. Beatrice Becerra, [employer], is assisting with the outpatient care at their home. They have a meeting tomorrow with an agency that will provide coverage at their home. Hopefully after that we can discharge him home with close followup with his primary care physician. Will continue to monitor closely and follow as needed. #[id number] [facility]
[2019-03-31] MEDS ORDERED: LEVOTHYROXINE SODIUM 0.1 MG TAB ONE (19:31)
[2019-03-31] MEDS ORDERED: SODIUM CHLORIDE 0.9% 250ML 250 ML ONE (19:31)
[2019-03-31] MEDS ORDERED: LEVOTHYROXINE SODIUM 0.075 MG TAB ONE (19:31)
[2019-03-31] MEDS ORDERED: VANCOMYCIN HCL INJ 1,000 MG VIAL IVPB ONE (19:32)
[2019-03-31] MEDS: PHENYTOIN SODIUM CAP EXTENDED 100 MG CAP PO SCH (20:22)
[2019-03-31] MEDS: DONEPEZIL HCL 5 MG TAB PO SCH (20:22)
[2019-03-31] MEDS: DIGOXIN 0.125 MG TAB PO SCH (20:22)
[2019-03-31] MEDS: SODIUM CHLORIDE 0.9% (FLUSH) 10 ML SYG IV PRN (23:23)
[2019-03-31] MEDS: VANCOMYCIN HCL INJ 750 MG in SODIUM CHLORIDE 0.9% 250ML 250 ML IVPB SCH (23:23)
[2019-04-01] MEDS: LEVOTHYROXINE SODIUM 0.1 MG, LEVOTHYROXINE SODIUM 0.075 MG PO SCH ×2 (06:23)
[2019-04-01] MEDS ORDERED: raNITIdine HCL INJ 25 MG/ML VIAL ONE (08:06)
[2019-04-01] MEDS ORDERED: SODIUM CHLORIDE 0.9% 50ML 50 ML ONE (08:06)
[2019-04-01] MEDS: raNITIdine HCL INJ 50 MG in SODIUM CHLORIDE 0.9% 50ML 50 ML IVPB SCH (08:55)
[2019-04-01] MEDS: ALLOPURINOL 300 MG TAB PO SCH (08:55)
[2019-04-01] MEDS: BIFIDOBACTERIUM INFANTIS 4 MG CAP PO SCH (08:55)
[2019-04-01] MEDS: SODIUM CHLORIDE 0.9% (FLUSH) 10 ML SYG IV PRN (08:57)
[2019-04-01] MEDS: HYDROCORTISONE 2.5% TOP SCH (11:35)
[2019-04-01] MEDS: WARFARIN SODIUM 2.5 MG TAB PO SCH (13:18)
[2019-04-01] MEDS: WARFARIN SODIUM 5 MG TAB PO SCH (13:42)
[2019-04-01 14:28] VITALS: BP 123/67; TEMP 97.2
[2019-04-01 14:59] VITALS: O2SAT 93
--- NOTE | 2019-04-20 09:20 | DS ---
SUPERVISING PHYSICIAN: Alvaro Anglin MD ADMISSION DIAGNOSIS: 1. Heat syncope due to heat exposure with initial temperature of 104.1 without obvious signs of seizure activity secondary to environmental exposure. 2. Acute kidney injury secondary to #1 with prerenal azotemia. 3. Cellulitis of both right and left lower extremities. 4. History of dementia. 5. History of atrial fibrillation with current controlled ventricular rate after IV fluids. 6. Coagulopathy, uncertain etiology. The patient's medications are not available, but he does have atrial fibrillation, awaiting list to see if he is actually on Coumadin. 7. History of congestive heart failure, uncertain etiology, without any signs of exacerbation and no echocardiogram at time of admission. 8. History of gouty arthritis. 9. History of thyroid malignancy on Synthroid. 10. Hyperlipidemia. 11. Osteopenia. 12. History of seizure disorders on Dilantin. DISCHARGE DIAGNOSIS: 1. Syncopal episode secondary to heat exposure with initial body temperature of 104.1, responding to cooling measures and IV fluids, now near baseline levels and euvolemic and has been afebrile. 2. Acute kidney injury secondary to #1 with prerenal azotemia improving with IV fluids, likely some component of chronic renal insufficiency. 3. Cellulitis of both lower extremities responding well to antibiotics. 4. Lower extremity edema with a history of congestive heart failure and no current echocardiogram per chart review with no signs of exacerbation. Left leg shows slight increase in edema compared to the right but patient remains on Coumadin but will evaluate with ultrasound for possible deep venous thrombosis. 5. Chronic atrial fibrillation with controlled ventricular rate on both digoxin and Coumadin. 6. Coagulopathy secondary to Coumadin therapy with patient now showing back to therapeutic levels with no signs of acute bleeding. 7. Anemia with a normocytic/normochromic presentation with patient on warfarin but no signs of acute loss. 8. Hypoxia with ambulation requiring further evaluation for possible home O2. 9. Significant deconditioning resulting in multiple falls, awaiting a physical therapy consultation to ensure patient's safety once discharged. 10. History of gouty arthritis, no signs of exacerbation. 11. History of thyroid malignancy on Synthroid. 12. Hyperlipidemia. 13. Osteopenia. 14. History of seizure disorders on Dilantin. REASON FOR HOSPITALIZATION: Mr. Villalpando is an 88 year-old male patient that was brought to the [facility] via ambulance after he was found unresponsive in his front yard of his house where he resides. He does have a longstanding history of dementia and apparently has had some seizures and was on Dilantin in the past. The patient is a very poor historian. He is alert but is not aware of his history and family was not available at time of History and Physical, therefore the history was obtained mainly from past medical records. On initial arrival the patient was responding by nodding his head and was nonverbal, but was found to be very dry and hypothermic, emaciated with dry mucosal membranes. His initial vital signs showed that he had an initial temperature of 104.3 with a heart rate of 125, blood pressure 135/67, respirations 30, satting 94% on room air. He was given a bolus of fluids which after initial bolus he started responding verbally and then was back to his baseline levels according to his family. His laboratory studies showed that he did have an acute kidney injury with a creatinine of 1.6. He was dehydrated obviously with an osmolality of 299, potassium 3.4, otherwise all other electrolytes were within normal limits. White count was within normal range with no left shift. The patient is now going to be admitted for heat exposure with syncope, uncertain etiology, with severe dehydration for close neurological monitoring and further evaluation. He was admitted in stable condition. LABORATORY: White count on admission was 7,800, hemoglobin 11.3, hematocrit 13.5. Prior to discharge, white count was still at normal at 9,000. Hemoglobin and hematocrit were stable at 9.7 and 29.0. Differential did initially show a left shift, but resolved prior to discharge. Coagulation studies showed initial INR 3.51. At discharge, it was 1.93. Chemistries showed sodium 144 on admission and on discharge was 139. Potassium was initially 3.2, prior to discharge was3.5. Initial BUN 49, at discharge was 35. Creatinine was 2.06 on admission and at discharge was down to 1.37. Liver functions were within normal limits on admission. CK was normal at 37. Toxicology showed Dilantin level 6.8 on admission with a digoxin 1.5, vancomycin 13.9 initially and then on 03/31/19 was 15.8. RADIOLOGY: Initially on admission, he had a CT of the head without contrast and per radiologic interpretation showed no CT evidence of acute intracranial processes. Please see that report for full details. He also had a chest x-ray in the Emergency Room and per radiologic interpretation showed faint bilateral basilar opacities, left greater than right, subsegmental atelectasis versus consolidation with a trace left pleural effusion. EKG prior to admission in the Emergency Room showed a sinus tachycardia with no acute findings. HOSPITAL COURSE: Mr. Villalpando was admitted on 03/27/19 with concerns for heat exhaustion. He was started on fluids. He also had some cellulitis to his lower extremities which was treated with vancomycin. He had good response to treatment with IV fluids. His INR became more therapeutic, less supratherapeutic with treatment. He had no complicating factors and felt he had improved clinically well enough to continue with outpatient management. PHYSICAL ASSESSMENT AT DISCHARGE: VITAL SIGNS: Temperature 97.2. Pulse 83. Blood pressure 123/67. Respirations 18. Saturation 94% on room air. GENERAL: The patient was resting comfortably, appeared to be in no acute distress. CHEST: Lungs clear to auscultation, just slightly diminished towards the bases. HEART: Regular rate and rhythm. ABDOMEN: Soft, negative, positive bowel sounds. EXTREMITIES: Much improved with no signs of cellulitis. PLAN: Mr. Villalpando was discharged on 04/01/19 with instructions to followup with Dr. Cho within 2 weeks after discharge and to continue with home health care through [facility] as well as [facility]. He was told to resume his medications as instructed and return to the hospital should he have any concerning symptoms. Arrangements were made for [facility] as well as sitters once discharged. His diet was to resume his usual diet. He was to ambulate only with a walker as per physical therapy and increase activity as tolerated. He was encouraged to avoid extreme heat, push fluids to prevent dehydration and return to the hospital for any concerning symptoms. MEDICATIONS ON DISCHARGE: All medications prior to hospitalization were resumed with no medications prescribed. DISPOSITION: The patient was discharged home to home health and sitters. CONDITION ON DISCHARGE: Stable and improved. #[id number] [facility]
== END 2019-04-01 15:56 | disposition home health service (06) | DRG 923 ==
LOC: ER 16:00 → MS 22:05
PROVIDERS: ADMIT Nurse Practitioner Family; ATTEND Nurse Practitioner Family
DX: T67.1XXA Heat syncope, initial encounter (principal); N17.9 Acute kidney failure, unspecified; L03.115 Cellulitis of right lower limb; L03.116 Cellulitis of left lower limb; E86.0 Dehydration; F03.90 Unspecified dementia, unspecified severity, without behavioral disturbance, psychotic disturbance, mood disturbance, and anxiety; R09.02 Hypoxemia; R29.6 Repeated falls; D64.9 Anemia, unspecified; I48.2 Chronic atrial fibrillation; N40.0 Benign prostatic hyperplasia without lower urinary tract symptoms; N18.9 Chronic kidney disease, unspecified; I50.9 Heart failure, unspecified; M10.9 Gout, unspecified; E78.5 Hyperlipidemia, unspecified; M85.80 Other specified disorders of bone density and structure, unspecified site; G40.909 Epilepsy, unspecified, not intractable, without status epilepticus; E89.0 Postprocedural hypothyroidism; Z85.850 Personal history of malignant neoplasm of thyroid; Z96.652 Presence of left artificial knee joint; Z88.5 Allergy status to narcotic agent; Z87.891 Personal history of nicotine dependence; X30.XXXA Exposure to excessive natural heat, initial encounter; Y92.007 Garden or yard of unspecified non-institutional (private) residence as the place of occurrence of the external cause; Z79.01 Long term (current) use of anticoagulants; Z79.899 Other long term (current) drug therapy; R79.1 Abnormal coagulation profile

== ENCOUNTER → 2019-05-06 | Outpatient (CLI) | payer MEDICARE | LOC: YCHH 09:47 | PROVIDERS: ATTEND Family Medicine | DX: R94.4 Abnormal results of kidney function studies (principal); D64.9 Anemia, unspecified; R94.5 Abnormal results of liver function studies; E78.5 Hyperlipidemia, unspecified; E04.1 Nontoxic single thyroid nodule ==

== ENCOUNTER 2019-05-24 12:10 | Inpatient (IN) | payer MEDICARE ==
--- NOTE | 2019-05-24 12:52 | ED.PDOC ---
History of Present Illness - General Chief Complaint: Neuro Symptoms/Deficits Stated Complaint: Chest/epigastric pain, N/V/D, recent pneumonia hx Time Seen by Provider: 05/24/19 12:25 - History of Present Illness Initial Comments: History by daughter Pt was very weak since 4 days , yesterday was confused and disoriented with some slurred speech associated with some epigastric pain and diarrhea . No sob Allergies/Adverse Reactions: Allergies Codeine Allergy (Verified 05/24/19 12:47) Sulfa Antibiotics Allergy (Verified 05/24/19 12:47) Home Medications: Ambulatory Orders Allopurinol [Zyloprim] 300 mg PO DAILY 03/31/14 Digoxin 0.125 mg PO BEDTIME 12/02/14 Bifidobacterium Infantis [Align] 4 mg PO BID 12/26/17 Acetaminophen [Tylenol] 650 mg PO Q4H PRN 03/28/19 Donepezil Hydrochloride [Donepezil HCl] 5 mg PO BEDTIME 03/28/19 Furosemide 40 mg PO DAILY 03/28/19 Hydrocortisone (Topical) [Hydrocortisone] 1 applic TOP BID 03/28/19 Indomethacin 50 mg PO DAILY PRN 03/28/19 Levothyroxine Sodium [Synthroid] 175 mcg PO DAILY@0700 03/28/19 Loperamide HCl [Imodium A-D] 2 mg PO PRN PRN 03/28/19 Phenytoin Sodium Extended 300 mg PO BEDTIME 03/28/19 Potassium 99 mg PO DAILYBK 03/28/19 Warfarin Sodium [Coumadin] 2.5 mg PO SUTUTHSA@1200 03/28/19 Warfarin Sodium [Coumadin] 5 mg PO MOWEFR@1200 03/28/19 Past Medical History (General) - Patient Medical History Hx Seizures: Yes Hx Stroke: No Hx Dementia: No Hx Asthma: No Hx of COPD: Yes Hx Cardiac Disorders: Yes Hx Congestive Heart Failure: Yes Hx Pacemaker: No Hx Hypertension: Yes Hx Thyroid Disease: Yes Hx Diabetes: No Hx Gastroesophageal Reflux: No Hx Renal Disease: No Hx Cancer: Yes - Thyroid Hx of HIV: No Hx Hepatitis C: No Hx MRSA: No MRSA Source:: Wound Surgical History: appendectomy, other - Vaccination History Hx Tetanus, Diphtheria Vaccination: No Hx Influenza Vaccination: Yes Hx Pneumococcal Vaccination: Yes Immunizations Up to Date: No - Social History Hx Tobacco Use: No Hx Chewing Tobacco Use: No Hx Alcohol Use: No Hx Substance Use: No Hx Substance Use Treatment: No Hx Depression: No Hx Physical Abuse: No Hx Emotional Abuse: No Hx Suspected Abuse: No - Female History Patient is a Female of Child Bearing Age (10 -59 yrs old): No Patient : No Family Medical History - Family History Mother Family History: Unknown Living Status: Age at (years of age): 26 Cause of : TB Hx Family Asthma: No Hx Family Congestive Heart Failure: No Hx Family Hypertension: Yes - Brother Hx Family Stroke: Yes - Aunt Hx Cardiac Disease: No Hx Family Diabetes: No Hx Family Cancer: Yes - Aunt Departure - Departure Clinical Impression: Confusion, Diarrhea, Weakness, Pneumonia Disposition: Admit Patient Condition: Fair Departure Forms: ED Discharge - Pt. Copy, Patient Portal Self Enrollment Referrals: Milo Cho MD [Primary Care Provider] - 1-2 Weeks Home Medications: Ambulatory Orders Allopurinol [Zyloprim] 300 mg PO DAILY 03/31/14 Digoxin 0.125 mg PO BEDTIME 12/02/14 Bifidobacterium Infantis [Align] 4 mg PO BID 12/26/17 Acetaminophen [Tylenol] 650 mg PO Q4H PRN 03/28/19 Donepezil Hydrochloride [Donepezil HCl] 5 mg PO BEDTIME 03/28/19 Furosemide 40 mg PO DAILY 03/28/19 Hydrocortisone (Topical) [Hydrocortisone] 1 applic TOP BID 03/28/19 Indomethacin 50 mg PO DAILY PRN 03/28/19 Levothyroxine Sodium [Synthroid] 175 mcg PO DAILY@0700 03/28/19 Loperamide HCl [Imodium A-D] 2 mg PO PRN PRN 03/28/19 Phenytoin Sodium Extended 300 mg PO BEDTIME 03/28/19 Potassium 99 mg PO DAILYBK 03/28/19 Warfarin Sodium [Coumadin] 2.5 mg PO SUTUTHSA@1200 03/28/19 Warfarin Sodium [Coumadin] 5 mg PO MOWEFR@1200 03/28/19 Comments: Pt d/w Javid Smith : Agreed to admit
[2019-05-24] MEDS: SODIUM CHLORIDE 0.9% (FLUSH) 10 ML SYG IV PRN ×2 (13:16→20:06)
--- NOTE | 2019-05-24 13:30 | CT ---
EXAM: Head CLINICAL INDICATION: Confusion COMPARISON: There is no previous study for comparison. TECHNIQUE: CT scan was done using contiguous axial 5 mm sections through the brain. This exam was performed according to our departmental dose-optimization program, which includes automated exposure control, adjustment of the mA and/or kV according to patient size and/or use of iterative reconstruction technique. FINDINGS: There is no midline shift, mass effect, or extraaxial fluid collection. There is no evidence of acute intracranial hemorrhage, mass lesion, or cerebral edema. Moderate diffuse atrophy and nonspecific chronic ischemic changes are noted. Bone window images reveal no evidence of a skull fracture. IMPRESSION: No evidence of an acute intracranial process. Electronically signed by: George Natarajan MD 05/24/2019 1:28 PM CDT
--- NOTE | 2019-05-24 13:31 | RAD ---
EXAM: Chest,1 View CLINICAL INDICATION: Shortness of breath COMPARISON: 03/27/2019 FINDINGS: A single view of the chest was obtained. The heart size is normal. The pulmonary vascularity is unremarkable. Mild bibasilar atelectasis is noted. The right hilum appears prominent. The lungs are otherwise clear. There is no pneumothorax. IMPRESSION: Prominent right hilum. CT scan of the chest is recommended to exclude underlying mass or lymphadenopathy. Bibasilar atelectasis. Electronically signed by: George Natarajan MD 05/24/2019 1:29 PM CDT
--- NOTE | 2019-05-24 14:47 | CT ---
EXAM DESCRIPTION: Chest w/o Contrast CLINICAL HISTORY: 88 years, Male, sob COMPARISON: Chest radiograph dated same day. CTA chest 05/26/2018 TECHNIQUE: Thin-section noncontrast axial CT images are obtained. Reconstructed MPR images are created and reviewed as well. No intravenous contrast. FINDINGS: Limited evaluation without intravenous contrast. Mild interstitial pulmonary edema. Small volume bilateral pleural effusions are present. Nodular and ground glass opacity/infiltrates within the lung bases more pronounced on the right are noted. Rounded hypodensity within the right infrahilar region measures 4.6 x 2.7 cm corresponding with recent chest radiographic findings. The right lower lobe bronchi is only partially narrowed by the hypodensity. No pneumothorax. The heart is normal mildly enlarged without significant pericardial effusion. No definite mediastinal lymphadenopathy. No acute osseous abnormality. No suspicious osseous lesion. Partially visualized upper abdomen demonstrate moderate volume of ascites. Low-attenuation right renal lesions, incompletely characterized, likely representing renal cysts. Mild left renal pelviectasis. Partially visualized soft tissue attenuation surrounding the abdominal aorta appears similar compared to prior examination. IMPRESSION: 1. Limited evaluation without intravenous contrast. 2. Right infrahilar 4.6 cm hypodensity may represent focal consolidation, lymph nodes conglomeration, or mass. Short-term follow-up with contrast-enhanced CT is recommended. 3. Mild interstitial pulmonary edema with small bilateral pleural effusions. 4. Partially visualized moderate volume abdominal ascites. 5. Partially visualized soft tissue attenuation surrounding the abdominal aorta, similar compared to prior examination. Further evaluation with contrast enhanced CT abdomen and pelvis can be obtained as clinically warranted. This exam was performed according to our departmental dose-optimization program, which includes automated exposure control, adjustment of the mA and/or kV according to patient size and/or use of iterative reconstruction technique. Electronically signed by: Gibran Carson DO 05/24/2019 2:45 PM CDT
[2019-05-24] MEDS ORDERED: levoFLOXacin 500MG IV 500 MG in PREMIX BAG 1 BAG IVPB ONE (14:50)
[2019-05-24] MEDS ORDERED: levoFLOXacin 500MG IV 100 ML IVPB ONE (15:05)
--- NOTE | 2019-05-24 15:56 | HP ---
SUPERVISING PHYSICIAN: Milo Cho MD CHIEF COMPLAINT: Shortness of breath, acute mental status change. HISTORY OF PRESENT ILLNESS: Mr. Villalpando is an 88-year-old male patient who was brought to the ER today by his family when it was noted he was confused and disoriented with questionable slurred speech and short of breath. The family reported symptoms had been on and off for the last 4 days. Mr. Villalpando is currently being treated for right sided pneumonia on doxycycline. He does have a significant history of recent hospitalization in March for heat exhaustion and some lower leg cellulitis and acute kidney injury. Workup today showed white count 10,200 with left shift, platelet count 492,000, hemoglobin 10.6, hematocrit 32.0. Chemistries showed kidney function was again elevated with creatinine 1.8 with baseline creatinine around 1.2 to 1.5. Lactic acid was elevated at 3.1. Liver functions were elevated with a normal bilirubin, but AST 68. It was also noted he had lipase 172. CT of the chest was done and per radiologic interpretation was noted he had a right infrahilar consolidation concerning for pneumonia along with some mild interstitial pulmonary edema with small bilateral pleural effusions. Given the findings on CT and his symptomatology and some issues with swallowing which has been demonstrated in the past, there is concern that he may have developed aspiration pneumonia. He was initially started on antibiotics in the Emergency Room and is now going to be admitted for initiation of further treatment evaluation of aspiration pneumonia. The patient is admitted in stable condition. PAST MEDICAL HISTORY: 1. Chronic atrial fibrillation on digoxin for rate control as well as chronic anticoagulation with Coumadin. 2. Benign prostatic hypertrophy. 3. Chronic renal insufficiency. 4. Chronic congestive heart failure with echocardiogram pending at time of admission. 5. Gouty arthritis. 6. History of thyroid malignancy on Synthroid. 7. Hyperlipidemia. 8. Osteoporosis. 9. Seizure disorder on Dilantin. PAST SURGICAL HISTORY: 1. Appendectomy. 2. 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 3. Thyroidectomy. 4. Neck surgery. 5. Left total knee arthroplasty. OUTPATIENT MEDICATIONS: Awaiting updated list in medical records and review per nursing. ALLERGIES: CODEINE. FAMILY HISTORY: Noncontributory. SOCIAL HISTORY: The patient is and lives at home with his . They do have sitters at home. He has a history of cigar smoking, but quit previously many years past. He does have a history of alcohol usage and does not use any illicit drugs. REVIEW OF SYSTEMS: CONSTITUTIONAL: Negative for any fevers, chills. HEENT: Negative for headaches, earaches, vision changes, but notes he has a sore throat. RESPIRATORY: As noted in history of present illness, shortness of breath, O2 dependent with home oxygen with recent treatment for right sided pneumonia. CARDIOVASCULAR: Negative for chest pain, palpitations or syncopal episodes. GASTROINTESTINAL: Negative for nausea, vomiting, but does have some diarrhea since starting doxycycline. Denies any actual abdominal pain. GENITOURINARY: Negative for dysuria, hematuria, polyuria. MUSCULOSKELETAL: Positive for chronic arthralgias. NEUROLOGIC: Positive for generalized weakness and some difficulty with swallowing, but no actual dysphagia. Denies actual seizures, but does have history of seizure activity on Dilantin. He does have ataxia from weakness and coordination, but denies any other neurologic deficits or any syncopal episodes. SKIN: Positive for cellulitis of lower extremities which is chronic from a previous environmental exposure. PHYSICAL EXAMINATION: VITAL SIGNS: Temperature 97. Heart rate 78. Blood pressure 110/66. Respirations 18. Saturation 93% on 2.5 liters nasal cannula. Admission weight 64.4 kg. GENERAL: The patient is unkept. He does appear unwell, but is in no obvious acute distress. He is alert, very soft spoken, but answers questions appropriately. His admission weight is essentially the same it as it was the last time he was in the hospital. He is cachectic in appearance. HEENT: Tympanic membranes clear bilaterally. Oropharynx is pink, very dry mucous membranes with cracked lips and tongue. NECK: Supple, nontender with full range of motion. No jugular venous distention noted. RESPIRATORY: Lungs clear on the left with the right with rhonchi heard more prominent on the lateral to mid anterior right lung martines. No obvious wheezing. CARDIOVASCULAR: Slightly irregular rate and rhythm without any appreciable murmurs, gallops, or rubs. ABDOMEN: Soft, sunken, very thin. Positive bowel sounds. EXTREMITIES: There is cellulitis to both anterior legs from just below the patella extending down to ankle with areas of eschar and scabbing with notable erythema, but no obvious abscess or drainage. NEUROLOGIC: The patient is alert, he answers questions appropriately. He does not know what year it is, but conversed with his family. According to the son, at time of exam the patient appeared to be back to his baseline mental status. Cranial nerves II-XII are grossly intact. Facial features are symmetrical. Extraocular movements are within normal limits. There is no nystagmus noted. LABORATORY: White count 10,200, hemoglobin 10.6, hematocrit 32.0, platelet count 492,000. Differential does show a left shift. Coagulation studies showed PT 45.7, INR 4.64, PT-T 62.2. Chemistries show normal electrolytes, potassium 4.1, anion gap normal. BUN elevated at 62, creatinine 1.88 with osmolality 298. Lactic acid 3.1, calcium normal at 10, bilirubin normal, AST elevated at 68, ALT normal at 18, alkaline phosphatase elevated at 167. Troponin within normal limits at 0.02. Albumin was low at 2.6 with lipase 172. Urinalysis was within normal limits with no concerning findings. Digoxin level was 1.4. Dilantin level pending. MICROBIOLOGY: Blood cultures pending. Flu swab A and B by PCR negative. RADIOLOGY: Chest x-ray initially in the Emergency Room per radiologic interpretation showed prominent right hilum with recommended CT scan. CT of the chest per radiologic interpretation showed right infrahilar 4.6 cm hypodensity which may represent focal consolidation with lymph nodes, conglomeration or mass. Recommend short-term followup CT with contrast when able. There is note of some mild interstitial pulmonary edema with bilateral pleural effusions with some partially visualized moderate volume abdominal ascites. ASSESSMENT: 1. Aspiration pneumonia having failed to respond to outpatient treatment plan. 2. Sepsis with elevated lactic acid and source of infection pneumonia of the right lung secondary to aspiration with mental status change and acute kidney failure. 3. Acute kidney failure with history of insufficiency, likely exacerbated from some prerenal azotemia from dehydration. 4. Moderate dehydration due to poor oral intake. 5. Elevated lipase likely due to underlying dehydration. 6. Hypoalbuminemia with concern for malnutrition and severe deconditioning. 7. Cellulitis to the lower extremities bilaterally, chronic, failing to respond to outpatient treatment. 8. Normocytic/normochromic anemia, likely from chronic illness. 9. Acute mental status change secondary to underlying infectious process and some hypoxemia due to hypoxia secondary to pneumonia and the patient O2 dependent. 10. Chronic atrial fibrillation on Coumadin with controlled ventricular rate. 11. Coagulopathy with a supratherapeutic Coumadin level, probably exacerbated from underlying dehydration, needing close monitor. 12. History of congestive heart failure with no current echocardiogram to review pending echocardiogram with no signs of current exacerbation. 13. History of gouty arthritis. 14. History of thyroid malignancy on Synthroid. 15. Hyperlipidemia. 16. Osteopenia. 17. History of seizure disorder on Dilantin. PLAN: Mr. Villalpando is going to be admitted for treatment of underlying pneumonia with concerns for aspiration. We will start him on antibiotics with meropenem and given that he does have some cellulitis to the extremities, we will start him on vancomycin per pharmacy protocol. We will hold his Coumadin and follow those levels. Right now, we will hold on any vitamin K, but closely monitor. We will follow his blood cultures and target antibiotic therapy as appropriate. Hopefully we can get a sputum culture as well. He will be on cardiac telemetry. We will resume his home medications as appropriate to care once they have been updated and verified. We will start him on some fluids. We will initially give him a bolus given that he has a lactic acidosis from both sepsis and dehydration. We will plan to recheck lactic acid in 4 to 6 hours and manage fluids accordingly. Once that is addressed, we will put him on maintenance fluids with D5 half normal saline, 20 of potassium at 80 an hour. We will plan to recheck laboratory studies in the morning as well as chest x-ray. Until the patient can transition to outpatient management, we will continue to monitor and treat as needed. #[id number] [facility]
[2019-05-24] MEDS ORDERED: SODIUM CHLORIDE 0.9% (FLUSH) 10 ML SYG IV PRN (18:50)
[2019-05-24] MEDS ORDERED: ACETAMINOPHEN 325 MG TAB PO PRN (18:50)
[2019-05-24] MEDS ORDERED: ALBUTEROL SULFATE 2.5 MG/3 ML VIAL NEB PRN (18:50)
[2019-05-24] MEDS ORDERED: ONDANSETRON INJ 4 MG/2 ML VIAL IV PRN (18:50)
[2019-05-24] MEDS ORDERED: MAGNESIUM HYDROXIDE 30 ML UD PO PRN (18:50)
[2019-05-24] MEDS ORDERED: SODIUM CHLORIDE 0.9% 1000ML 1,000 ML IVS ONE ×2 (19:53→23:36)
[2019-05-24] MEDS: IV SET AND CAP CHANGE INJ INJ SCH (20:06)
[2019-05-24] MEDS ORDERED: SODIUM CHL 0.9% 50ML MIN-BAG+ 50 ML IVPB ONE (20:23)
[2019-05-24] MEDS ORDERED: PHENYTOIN SODIUM CAP EXTENDED 100 MG CAP PO ONE (20:23)
[2019-05-24] MEDS ORDERED: MEROPENEM 1 GM VIAL IVPB ONE (20:24)
[2019-05-24] MEDS ORDERED: LEVOTHYROXINE SODIUM 0.075 MG TAB ONE (20:24)
[2019-05-24] MEDS ORDERED: LEVOTHYROXINE SODIUM 0.1 MG TAB ONE (20:24)
[2019-05-24] MEDS: DONEPEZIL HCL 5 MG TAB PO SCH (20:38)
[2019-05-24] MEDS: MEROPENEM 1 GM in SODIUM CHL 0.9% 50ML MIN-BAG+ 50 ML IVPB SCH (20:39)
[2019-05-24] MEDS: LEVALBUTEROL NEBS 1.25 MG/3 ML VIAL INH SCH ×2 (20:39→23:44)
[2019-05-24] MEDS ORDERED: VANCOMYCIN HCL INJ 1,000 MG in SODIUM CHLORIDE 0.9% 250ML 250 ML IVPB ONE (20:40)
[2019-05-24] MEDS: PHENYTOIN SODIUM CAP EXTENDED 100 MG CAP PO SCH (20:41)
[2019-05-24] MEDS ORDERED: VANCOMYCIN HCL INJ 1,000 MG VIAL IVPB ONE (20:47)
[2019-05-24] MEDS ORDERED: SODIUM CHLORIDE 0.9% 250ML 250 ML ONE (20:47)
[2019-05-24] MEDS ORDERED: PHENYTOIN SODIUM CAP (ER DISP) 100 MG CAP PO SCH (21:00)
[2019-05-24] MEDS ORDERED: AMPICILLIN & SULBACTAM SODIUM 3 GM in SODIUM CHL 0.9% 100ML MINI-BAG 100 ML IVPB SCH (21:00)
[2019-05-24] MEDS: KCL 20MEQ/D5 1/2NS 1,000 ML IVS PRN (22:33)
[2019-05-25] MEDS: PANTOPRAZOLE SODIUM IV 40 MG VIAL IV SCH (06:01)
[2019-05-25] MEDS ORDERED: OMEPRAZOLE CAP 20 MG CAP PO SCH (06:30)
[2019-05-25] MEDS ORDERED: NON-FORMULARY MEDICATION 1 EA MIS (Levothyroxine Sodium [Synthroid] 175 MCG) PO SCH (07:00)
[2019-05-25] MEDS: LEVALBUTEROL NEBS 1.25 MG/3 ML VIAL INH SCH ×3 (07:32→23:39)
[2019-05-25] MEDS ORDERED: MEROPENEM 1 GM VIAL IVPB ONE ×2 (07:50→19:27)
[2019-05-25] MEDS ORDERED: SODIUM CHL 0.9% 50ML MIN-BAG+ 50 ML IVPB ONE ×2 (07:50→19:26)
[2019-05-25] MEDS ORDERED: VANCOMYCIN PER PHARMACY IVPB SCH (08:00)
[2019-05-25] MEDS: MEROPENEM 1 GM in SODIUM CHL 0.9% 50ML MIN-BAG+ 50 ML IVPB SCH ×2 (09:39→20:18)
[2019-05-25] MEDS: ALLOPURINOL 300 MG TAB PO SCH (09:40)
--- NOTE | 2019-05-25 09:58 | RAD ---
EXAM DESCRIPTION: Chest,2 Views CLINICAL HISTORY: Pneumonia COMPARISON: None TECHNIQUE: PA/lateral FINDINGS: Mass in the right pulmonary hilum could be adenopathy, tumor or enlarged pulmonary artery. Similar appearance was seen on the previous study. Patient had a CT of the chest May 24, 2019 performed without IV contrast. CT images suggested an enlarged pulmonary arteries with infiltrate in the right lower lobe more likely than neoplasm. Follow-up is recommended to ensure clearance of pulmonary infiltrates. The follow-up chest CT should include IV contrast. See previous chest CT report. Left apical pleural parenchymal scarring. Heart size is prominent with centrally prominent pulmonary vascularity. No pleural effusion or pneumothorax. Patchy infiltrates in the lung bases. Right hemidiaphragm is elevated. Arthritic changes in the shoulders. Lateral view shows intact sternum and T-spine. IMPRESSION: Right hilar mass or enlarged pulmonary artery with bibasilar patchy pulmonary infiltrates. See above recommendations for follow-up. Electronically signed by: Ken Tavares MD 05/25/2019 9:56 AM CDT
--- NOTE | 2019-05-25 10:14 | CT ---
EXAM DESCRIPTION: Abdomen/Pelvis w/wo Contrast CLINICAL HISTORY: increase latic acid COMPARISON: Chest May 24, 2019. CT abdomen pelvis April 07, 2012 TECHNIQUE: Pre and postcontrast transaxial CT images of the abdomen and pelvis are obtained. Images are moderately degraded by patient breathing motion artifact limiting detailed evaluation. This exam was performed according to our departmental dose-optimization program, which includes automated exposure control, adjustment of the mA and/or kV according to patient size and/or use of iterative reconstruction technique . FINDINGS: Visualized lower chest shows enlarged liver. Bilateral lower lobe consolidations with air bronchograms are seen with small bilateral pleural effusions. Moderate to large volume ascites throughout the abdomen and pelvis. The liver is small and unremarkable. No focal mass. Spleen shows multiple calcifications. Small 10 mm cyst on the superior spleen. Adrenal glands and gallbladder are unremarkable. Moderate vascular calcifications. Several fluid attenuation cortical cysts are seen in both kidneys. Extrarenal pelvis of the left kidney. Ureters are difficult to identify. Urinary bladder is poorly distended but unremarkable. Prostate mildly enlarged. Soft tissue attenuation mass in the central abdomen measuring at least 7.6 x 7.0 cm extending around the IVC and abdominal aorta. This mass surrounds the superior mesenteric artery and vein abutting the head to neck of the pancreas. No pancreatic duct dilatation. Lymphadenopathy or mass in the left common iliac region measures 3.2 x 1.8 cm. Enhancing irregular mass in the right hemipelvis measures 6.0 x 4.1 cm. Lymphadenopathy in the right external iliac chain region. Left external iliac chain lymph node is enlarged measuring 1.6 cm. Stomach is normally distended and unremarkable. No bowel obstruction. No obvious bowel wall thickening. No free intraperitoneal air. Masslike thickening in the rectosigmoid colon in the presacral space measures 5.2 x 4.4 cm. Osseous structures show moderate to severe degenerative changes of the spine. L2 and L3 laminectomy changes are seen. Scoliosis of the spine. Multiple surgical clips in the right inguinal region. Mild subcutaneous soft tissue fat stranding IMPRESSION: Soft tissue mass in the central abdomen surrounding the mesenteric vessels with multiple retroperitoneal lesions including right pelvic to external iliac chain lesions. Differential includes lymphoma versus lymphatic spread of neoplastic process. Recommend tissue sampling. Moderate ascites throughout the abdomen and pelvis. Enlarged prostate indenting the floor the urinary bladder. Masslike density in the rectosigmoid colon concerning for colon neoplastic process. Further evaluation with physical exam or colonoscopy findings. Electronically signed by: Manuelito Trent MD 05/25/2019 10:12 AM CDT
[2019-05-25] MEDS: KCL 20MEQ/D5 1/2NS 1,000 ML IVS PRN (17:11)
[2019-05-25] MEDS ORDERED: SODIUM CHLORIDE 0.9% 250ML 250 ML ONE (19:26)
[2019-05-25] MEDS ORDERED: VANCOMYCIN HCL INJ 500 MG VIAL ONE (19:26)
[2019-05-25] MEDS ORDERED: LEVOTHYROXINE SODIUM 0.075 MG TAB ONE (19:27)
[2019-05-25] MEDS ORDERED: VANCOMYCIN HCL INJ 1,000 MG VIAL IVPB ONE (19:27)
[2019-05-25] MEDS ORDERED: LEVOTHYROXINE SODIUM 0.1 MG TAB ONE (19:27)
--- NOTE | 2019-05-25 20:12 | PN ---
DATE: 05/25/19 SUPERVISING PHYSICIAN: You Anglin M.D. SUBJECTIVE: The patient is sitting up in bed. His family is at the bedside. There were some concerns that his had not been feeding him several meals a day as he has lost quite a bit of weight over the last few months. We discussed this situation at length with the patient's daughter and I have arranged for talking with the tomorrow. Otherwise the patient is feeling better. He continues to have a cough and some mild shortness of breath but no chest pain, nausea or vomiting. OBJECTIVE: VITAL SIGNS: Temperature 97.5, heart rate 90, blood pressure 116/70, respiratory rate 18, O2 sat 95% on 2.5 liters nasal cannula. RESPIRATORY: Diminished at the bases with poor inspiratory effort. He has a few scattered rhonchi in the apices. CARDIAC: Regular rate and irregular rhythm. GASTROINTESTINAL: Abdomen is soft, nondistended, non-tender. Bowel sounds are positive. NEUROLOGIC: He is awake and alert. He does get slightly confused easily but answers questions appropriately. LABORATORY: WBCs are 9.5 with hemoglobin 9.2, hematocrit 28.6. Electrolytes are basically within normal limits. BUN 57, creatinine 1.55. AST 60, alkaline phosphatase 144. Preliminary blood cultures are negative to date. Sputum culture is pending. Chest x-ray shows right hilar mass or enlarged pulmonary artery with bibasilar patchy pulmonary infiltrates. All other labs and films have been reviewed via the EMR. ASSESSMENT: 1. Aspiration pneumonia having failed to respond to outpatient treatment plan. 2. Sepsis with elevated lactic acid and source of infection pneumonia of the right lung secondary to aspiration with mental status change and acute kidney failure. 3. Acute kidney failure with history of insufficiency, likely exacerbated from some prerenal azotemia from dehydration. 4. Moderate dehydration due to poor oral intake. 5. Elevated lipase likely due to underlying dehydration. 6. Hypoalbuminemia with concern for malnutrition and severe deconditioning. 7. Cellulitis to the lower extremities bilaterally, chronic, failing to respond to outpatient treatment. 8. Normocytic/normochromic anemia, likely from chronic illness. 9. Acute mental status change secondary to underlying infectious process and some hypoxemia due to hypoxia secondary to pneumonia and the patient O2 dependent. 10. Chronic atrial fibrillation on Coumadin with controlled ventricular rate. 11. Coagulopathy with a supratherapeutic Coumadin level, probably exacerbated from underlying dehydration, needing close monitor. 12. History of congestive heart failure with no current echocardiogram to review pending echocardiogram with no signs of current exacerbation. 13. History of gouty arthritis. 14. History of thyroid malignancy on Synthroid. 15. Hyperlipidemia. 16. Osteopenia. 17. History of seizure disorder on Dilantin. PLAN: We will continue present supportive care, including aggressive pulmonary hygiene and his antibiotic therapy. He will have lab drawn for in the morning including a PT and INR as his INR has been supratherapeutic. Will need to restart his Coumadin as soon as his INR is within range. His chest x-ray did recommend a CT of the chest with contrast. We may do that tomorrow but I will watch how he is clinically. There is also an echocardiogram pending and I will also review those results hopefully tomorrow. Will continue to monitor closely and follow as needed. #[id number] [facility]
[2019-05-25] MEDS: DONEPEZIL HCL 5 MG TAB PO SCH (20:18)
[2019-05-25] MEDS: PHENYTOIN SODIUM CAP EXTENDED 100 MG CAP PO SCH (20:18)
[2019-05-25] MEDS: VANCOMYCIN HCL INJ 1,000 MG, VANCOMYCIN HCL INJ 250 MG in SODIUM CHLORIDE 0.9% 250ML 25... IVPB SCH (21:49)
[2019-05-26] MEDS ORDERED: MAGNESIUM SULFATE PREMIX 2GM 2 GM in PREMIX BAG 1 BAG IVPB ONE (06:34)
[2019-05-26] MEDS: LEVOTHYROXINE SODIUM 0.075 MG TAB PO SCH (06:36)
[2019-05-26] MEDS: LEVOTHYROXINE SODIUM 0.1 MG TAB PO SCH (06:36)
[2019-05-26] MEDS: PANTOPRAZOLE SODIUM IV 40 MG VIAL IV SCH (06:36)
[2019-05-26] MEDS ORDERED: MAGNESIUM SULFATE PREMIX 2GM 50 ML IVPB ONE (06:47)
[2019-05-26] MEDS ORDERED: MEROPENEM 1 GM VIAL IVPB ONE ×2 (08:03→19:35)
[2019-05-26] MEDS ORDERED: SODIUM CHL 0.9% 50ML MIN-BAG+ 50 ML IVPB ONE ×2 (08:03→19:34)
[2019-05-26] MEDS: LEVALBUTEROL NEBS 1.25 MG/3 ML VIAL INH SCH ×3 (08:05→23:31)
[2019-05-26] MEDS: MEROPENEM 1 GM in SODIUM CHL 0.9% 50ML MIN-BAG+ 50 ML IVPB SCH ×2 (08:38→20:17)
[2019-05-26] MEDS: ALLOPURINOL 300 MG TAB PO SCH (08:38)
[2019-05-26] MEDS: PHENYTOIN SODIUM CAP EXTENDED 100 MG CAP PO SCH (20:17)
[2019-05-26] MEDS: DONEPEZIL HCL 5 MG TAB PO SCH (20:17)
--- NOTE | 2019-05-26 21:11 | PN ---
DATE: 05/26/19 SUPERVISING PHYSICIAN: You Anglin M.D. SUBJECTIVE: The patient is sitting up in bed eating. His is at the bedside. He has family at the bedside as well. He said he is feeling stronger and has had no shortness of breath, although he does continue to feel weak. There is no chest pain, nausea or vomiting. His was confused that she thought he was going to be discharged today and I have explained that he was not and will he get a Physical Therapy consultation prior to his discharge. Also I have a scheduled meeting with his daughter some time today. OBJECTIVE: VITAL SIGNS: Temperature 98.2, heart rate 85, blood pressure 127/62, respiratory rate 20, O2 sat 98% on 2.5 liters nasal cannula. RESPIRATORY: Diminished breath sounds at the bases with a few scattered rhonchi. There is no wheezing. He does have to speak in short phrases due to mild shortness of breath. CARDIAC: Regular rate and rhythm. GASTROINTESTINAL: Abdomen is soft, nondistended, non-tender. Bowel sounds are positive. EXTREMITIES: No cyanosis or clubbing. He does have +1 pedal edema bilaterally in his lower extremities. Bilateral pedal pulses are palpable at +2. NEUROLOGIC: He is awake, alert and oriented times three. LABORATORY: WBCs are 8.6 with hemoglobin 9.6, hematocrit 29.9. INR 3.9. Electrolytes are basically within normal limits with the exception of his magnesium is 1. Sputum culture is pending. Preliminary blood cultures show no growth. All other labs and films have been reviewed via the EMR. ASSESSMENT: 1. Aspiration pneumonia having failed to respond to outpatient treatment plan. 2. Sepsis with elevated lactic acid and source of infection pneumonia of the right lung secondary to aspiration with mental status change and acute kidney failure. 3. Acute kidney failure with history of insufficiency, likely exacerbated from some prerenal azotemia from dehydration. 4. Moderate dehydration due to poor oral intake. 5. Elevated lipase likely due to underlying dehydration. 6. Hypoalbuminemia with concern for malnutrition and severe deconditioning. 7. Cellulitis to the lower extremities bilaterally, chronic, failing to respond to outpatient treatment. 8. Normocytic/normochromic anemia, likely from chronic illness. 9. Acute mental status change secondary to underlying infectious process and some hypoxemia due to hypoxia secondary to pneumonia and the patient O2 dependent. 10. Chronic atrial fibrillation on Coumadin with controlled ventricular rate. 11. Coagulopathy with a supratherapeutic Coumadin level, probably exacerbated from underlying dehydration, needing close monitor. 12. History of congestive heart failure with no current echocardiogram to review pending echocardiogram with no signs of current exacerbation. 13. History of gouty arthritis. 14. History of thyroid malignancy on Synthroid. 15. Hyperlipidemia. 16. Osteopenia. 17. History of seizure disorder on Dilantin. PLAN: We will continue present supportive care. His creatinine is somewhat better but his lipase is unchanged. I will continue to monitor that. The patient is eating somewhat better but I am going to order some Ensure 4 times daily for nutritional supplementation. I will repeat a lab in the morning including a PT and INR as well as chest x-ray. He received some magnesium supplementation today so I will make sure that that is checked as well. I have ordered physical therapy to make sure he is safe to return home. Hopefully he can be discharged in the next 24 to 48 hours. I did speak with his primary care physician, Dr. Cho about his discharge plan. Will continue to monitor closely and follow as needed. #[id number] [facility]
[2019-05-27] MEDS: PANTOPRAZOLE SODIUM IV 40 MG VIAL IV SCH (06:05)
[2019-05-27] MEDS: LEVOTHYROXINE SODIUM 0.1 MG TAB PO SCH (06:06)
[2019-05-27] MEDS: LEVOTHYROXINE SODIUM 0.075 MG TAB PO SCH (06:06)
[2019-05-27] MEDS ORDERED: MAGNESIUM SULFATE PREMIX 2GM 0 ML IVPB ONE (06:50)
[2019-05-27] MEDS ORDERED: MAGNESIUM SULFATE PREMIX 4GM 50 ML IVPB ONE (06:56)
[2019-05-27] MEDS ORDERED: MAGNESIUM SULFATE PREMIX 4GM 4 GM in PREMIX BAG 1 BAG IVPB ONE (07:00)
[2019-05-27] MEDS ORDERED: SODIUM CHL 0.9% 50ML MIN-BAG+ 50 ML IVPB ONE ×2 (07:23→18:55)
[2019-05-27] MEDS ORDERED: VANCOMYCIN HCL INJ 500 MG VIAL ONE (07:23)
[2019-05-27] MEDS ORDERED: SODIUM CHLORIDE 0.9% 250ML 250 ML ONE (07:23)
[2019-05-27] MEDS ORDERED: VANCOMYCIN HCL INJ 1,000 MG VIAL IVPB ONE (07:24)
[2019-05-27] MEDS ORDERED: MEROPENEM 1 GM VIAL IVPB ONE ×2 (07:24→18:56)
[2019-05-27] MEDS: ALLOPURINOL 300 MG TAB PO SCH (08:18)
[2019-05-27] MEDS: MEROPENEM 1 GM in SODIUM CHL 0.9% 50ML MIN-BAG+ 50 ML IVPB SCH ×2 (08:18→20:35)
[2019-05-27] MEDS: FUROSEMIDE 40 MG TAB PO SCH (08:23)
--- NOTE | 2019-05-27 08:34 | RAD ---
EXAM DESCRIPTION: Chest,1 View CLINICAL HISTORY: 88 years Male, bibasilar pna COMPARISON: CT chest 05/24/2019. Chest radiograph 05/25/2019. TECHNIQUE: Single frontal view of the chest. IMPRESSION: Stable size cardiac silhouette. Partially calcified aorta. Stable right infrahilar opacity. Recommend interval follow-up to exclude underlying malignancy after appropriate treatment. Small left pleural effusion. Elevation right hemidiaphragm. No pleural effusion or pneumothorax. Thoracic spondylosis. Chronic left-sided rib fractures. Moderate severe arthrosis of the left glenohumeral joint. Electronically signed by: Leland Temple MD 05/27/2019 8:32 AM CDT
[2019-05-27] MEDS: LEVALBUTEROL NEBS 1.25 MG/3 ML VIAL INH SCH ×3 (08:46→23:56)
[2019-05-27] MEDS ORDERED: MECLIZINE HCL 12.5 MG TAB PO PRN (09:43)
[2019-05-27] MEDS: VANCOMYCIN HCL INJ 1,000 MG, VANCOMYCIN HCL INJ 250 MG in SODIUM CHLORIDE 0.9% 250ML 25... IVPB SCH (09:59)
--- NOTE | 2019-05-27 10:47 | PN ---
SUPERVISING PHYSICIAN: Alvaro Anglin MD DATE: 05/27/19 SUBJECTIVE: The patient is sitting up in his chair in his room. His family is at the bedside. He complains of a flare-up of his vertigo and we restarted his medications. He was unable to do his physical therapy this morning due to the weakness and dizziness. Otherwise, no complaints of shortness of breath, diarrhea, nausea or vomiting. OBJECTIVE: VITAL SIGNS: Temperature 97.1. Heart rate 96. Blood pressure 108/62. Respiratory rate 18. O2 saturation 93% on 3 liters nasal cannula. RESPIRATORY: Diminished breath sounds at the bases, otherwise clear to auscultation. CARDIAC: Regular rate and rhythm. GASTROINTESTINAL: Abdomen is soft, nondistended, nontender. Bowel sounds are positive. EXTREMITIES: No cyanosis or clubbing. He does have +1 to +2 pedal edema bilaterally. NEUROLOGIC: He is awake, alert and oriented times three. LABORATORY: WBCs 8,900 with hemoglobin 9.3, hematocrit 28.5. INR 2.93 today. Electrolytes are basically within normal limits with his magnesium pending. Creatinine has improved slightly to 1.43. Preliminary blood cultures show no growth after 24 hours. Sputum culture pending. Chest x-ray shows stable sized cardiac silhouette, partially calcified aorta, stable right infrahilar opacity. Recommend interval followup to exclude underlying malignancy after treatment. Small left pleural effusion. All other labs and films have been reviewed via the EMR. ASSESSMENT: 1. Aspiration pneumonia having failed to respond to outpatient treatment plan. 2. Sepsis with elevated lactic acid and source of infection pneumonia of the right lung secondary to aspiration with mental status change and acute kidney failure. 3. Acute kidney failure with history of insufficiency, likely exacerbated from some prerenal azotemia from dehydration. 4. Moderate dehydration due to poor oral intake. 5. Elevated lipase likely due to underlying dehydration. 6. Benign positional vertigo by history. 7. Hypoalbuminemia with concern for malnutrition and severe deconditioning. 8. Cellulitis to the lower extremities bilaterally, chronic, failing to respond to outpatient treatment. 9. Normocytic/normochromic anemia, likely from chronic illness. 10. Acute mental status change secondary to underlying infectious process and some hypoxemia due to hypoxia secondary to pneumonia and the patient O2 dependent. 11. Chronic atrial fibrillation on Coumadin with controlled ventricular rate. 12. Coagulopathy with a supratherapeutic Coumadin level, probably exacerbated from underlying dehydration, needing close monitor. 13. History of congestive heart failure with no current echocardiogram to review pending echocardiogram with no signs of current exacerbation. 14. History of gouty arthritis. 15. History of thyroid malignancy on Synthroid. 16. Hyperlipidemia. 17. Osteopenia. 18. History of seizure disorder on Dilantin. PLAN: We will continue present supportive care. Hopefully he can be evaluated by Physical Therapy this afternoon. I have restarted his Coumadin at 3 mg. He typically gets 7.5 mg daily. His dosing may need to be adjusted due to his weight changes. I will also watch for his magnesium to see if he needs replacement today. It is strongly encouraged that we talk to the family about hospice as I think the patient would benefit from that greatly. We will continue to monitor the patient closely and follow as needed. #[id number] [facility]
[2019-05-27] MEDS: WARFARIN SODIUM 3 MG TAB PO SCH (13:12)
[2019-05-27] MEDS ORDERED: DIGOXIN 0.125 MG TAB ONE (18:55)
[2019-05-27] MEDS: DIGOXIN 0.125 MG TAB PO SCH (20:23)
[2019-05-27] MEDS: DONEPEZIL HCL 5 MG TAB PO SCH (20:23)
[2019-05-27] MEDS: PHENYTOIN SODIUM CAP EXTENDED 100 MG CAP PO SCH (20:23)
[2019-05-27] MEDS: IV SET AND CAP CHANGE INJ INJ SCH (20:37)
[2019-05-28] MEDS: PANTOPRAZOLE SODIUM IV 40 MG VIAL IV SCH (06:15)
[2019-05-28] MEDS: LEVOTHYROXINE SODIUM 0.1 MG TAB PO SCH (06:31)
[2019-05-28] MEDS: LEVOTHYROXINE SODIUM 0.075 MG TAB PO SCH (06:32)
[2019-05-28] MEDS: LEVALBUTEROL NEBS 1.25 MG/3 ML VIAL INH SCH ×2 (08:44→16:35)
[2019-05-28] MEDS ORDERED: SODIUM CHL 0.9% 50ML MIN-BAG+ 50 ML IVPB ONE ×2 (09:40→19:02)
[2019-05-28] MEDS ORDERED: MEROPENEM 1 GM VIAL IVPB ONE ×2 (09:41→19:03)
[2019-05-28] MEDS: ALLOPURINOL 300 MG TAB PO SCH (09:57)
[2019-05-28] MEDS: MEROPENEM 1 GM in SODIUM CHL 0.9% 50ML MIN-BAG+ 50 ML IVPB SCH ×2 (09:57→21:02)
[2019-05-28] MEDS: FUROSEMIDE 40 MG TAB PO SCH (09:57)
[2019-05-28] MEDS: WARFARIN SODIUM 3 MG TAB PO SCH (12:39)
[2019-05-28] MEDS ORDERED: MAGNESIUM SULFATE PREMIX 2GM 2 GM in PREMIX BAG 1 BAG IVPB ONE (12:49)
--- NOTE | 2019-05-28 13:19 | PN ---
SUPERVISING PHYSICIAN: Alvaro Anglin MD DATE: 05/28/19 SUBJECTIVE: The patient is sitting up in his bed. His family is at the bedside. We discussed at length his discharge plan and to be discharging with hospice. His son and daughter are both going down to speak with [facility] for possible admission tomorrow. The patient is very weak, but no shortness of breath, nausea or vomiting. OBJECTIVE: VITAL SIGNS: Temperature 97.8. Heart rate 95. Blood pressure 118/76. Respiratory rate 24. O2 saturation 95% on 2.5 liters nasal cannula. RESPIRATORY: Diminished breath sounds throughout. CARDIAC: Regular rate and rhythm. GASTROINTESTINAL: Abdomen is soft, nondistended, nontender. Bowel sounds are positive. NEUROLOGIC: He is awake and alert. LABORATORY: WBCs 10,500, hemoglobin 9.5, hematocrit 28.9. INR 2.49. Electrolytes are basically within normal limits with the exception of his magnesium is 1.6. BUN 48, creatinine 1.44. Preliminary blood cultures show no growth. All other labs and films have been reviewed via the EMR. ASSESSMENT: 1. Aspiration pneumonia having failed to respond to outpatient treatment plan. 2. Sepsis with elevated lactic acid and source of infection pneumonia of the right lung secondary to aspiration with mental status change and acute kidney failure. 3. Acute kidney failure with history of insufficiency, likely exacerbated from some prerenal azotemia from dehydration. 4. Moderate dehydration due to poor oral intake. 5. Elevated lipase likely due to underlying dehydration. 6. Benign positional vertigo by history. 7. Hypoalbuminemia with concern for malnutrition and severe deconditioning. 8. Cellulitis to the lower extremities bilaterally, chronic, failing to respond to outpatient treatment. 9. Normocytic/normochromic anemia, likely from chronic illness. 10. Acute mental status change secondary to underlying infectious process and some hypoxemia due to hypoxia secondary to pneumonia and the patient O2 dependent. 11. Chronic atrial fibrillation on Coumadin with controlled ventricular rate. 12. Coagulopathy with a supratherapeutic Coumadin level, probably exacerbated from underlying dehydration, needing close monitor. 13. History of congestive heart failure with no current echocardiogram to review pending echocardiogram with no signs of current exacerbation. 14. History of gouty arthritis. 15. History of thyroid malignancy on Synthroid. 16. Hyperlipidemia. 17. Osteopenia. 18. History of seizure disorder on Dilantin. PLAN: We will continue present supportive care. At this point, the patient is extremely weak and I am not sure he will improve extensively due to his comorbidities as well as his poor health. The family is going to speak with [facility] today and hopefully he can be discharged tomorrow with his sitters and home health hospice. I am somewhat concerned that the family does not want to let his know that hospice is coming, but they are speaking to hospice this afternoon and I will let them iron out those issues. It would be unsafe for the patient to go home due to his extreme deconditioning and weakness. He needs a hospital bed as well as other medical equipment. I will recheck his PT/INR in the morning. We will continue on the present dose of Coumadin. We may need to go up to a higher dosing as his previous dosing was 7.5 mg daily. We plan for discharge tomorrow to home with [facility]. #[id number] [facility]
[2019-05-28] MEDS ORDERED: SODIUM CHLORIDE 0.9% 250ML 250 ML ONE (19:02)
[2019-05-28] MEDS ORDERED: VANCOMYCIN HCL INJ 500 MG VIAL ONE (19:02)
[2019-05-28] MEDS ORDERED: VANCOMYCIN HCL INJ 1,000 MG VIAL IVPB ONE (19:03)
[2019-05-28] MEDS: PHENYTOIN SODIUM CAP EXTENDED 100 MG CAP PO SCH (21:01)
[2019-05-28] MEDS: DONEPEZIL HCL 5 MG TAB PO SCH (21:01)
[2019-05-28] MEDS: DIGOXIN 0.125 MG TAB PO SCH (21:01)
[2019-05-28] MEDS: VANCOMYCIN HCL INJ 1,000 MG, VANCOMYCIN HCL INJ 250 MG in SODIUM CHLORIDE 0.9% 250ML 25... IVPB SCH (21:39)
[2019-05-29] MEDS: PANTOPRAZOLE SODIUM IV 40 MG VIAL IV SCH (06:22)
[2019-05-29] MEDS: LEVOTHYROXINE SODIUM 0.075 MG TAB PO SCH (06:33)
[2019-05-29] MEDS: LEVOTHYROXINE SODIUM 0.1 MG TAB PO SCH (06:33)
[2019-05-29] MEDS: LEVALBUTEROL NEBS 1.25 MG/3 ML VIAL INH SCH ×2 (08:35)
[2019-05-29] MEDS ORDERED: SODIUM CHL 0.9% 50ML MIN-BAG+ 50 ML IVPB ONE (08:41)
[2019-05-29] MEDS ORDERED: MEROPENEM 1 GM VIAL IVPB ONE (08:42)
[2019-05-29] MEDS: ALLOPURINOL 300 MG TAB PO SCH (09:18)
[2019-05-29] MEDS: MEROPENEM 1 GM in SODIUM CHL 0.9% 50ML MIN-BAG+ 50 ML IVPB SCH (09:18)
[2019-05-29] MEDS: FUROSEMIDE 40 MG TAB PO SCH (09:18)
[2019-05-29] MEDS ORDERED: FLECAINIDE 50 MG TAB PO ONE (09:42)
[2019-05-29] MEDS ORDERED: APIXABAN 5 MG TAB PO ONE (09:43)
[2019-05-29 10:47] VITALS: BP 109/61; TEMP 97.9
[2019-05-29] MEDS: WARFARIN SODIUM 3 MG TAB PO SCH (12:27)
[2019-05-29 14:03] VITALS: O2SAT 95
--- NOTE | 2019-05-31 14:03 | DS ---
SUPERVISING PHYSICIAN: Milo Cho MD ADMISSION DIAGNOSES: 1. Aspiration pneumonia having failed to respond to outpatient treatment plan. 2. Sepsis with elevated lactic acid and source of infection pneumonia of the right lung secondary to aspiration with mental status change and acute kidney failure. 3. Acute kidney failure with history of insufficiency, likely exacerbated from some prerenal azotemia from dehydration. 4. Moderate dehydration due to poor oral intake. 5. Elevated lipase likely due to underlying dehydration. 6. Hypoalbuminemia with concern for malnutrition and severe deconditioning. 7. Cellulitis to the lower extremities bilaterally, chronic, failing to respond to outpatient treatment. 8. Normocytic/normochromic anemia, likely from chronic illness. 9. Acute mental status change secondary to underlying infectious process and some hypoxemia due to hypoxia secondary to pneumonia and the patient O2 dependent. 10. Chronic atrial fibrillation on Coumadin with controlled ventricular rate. 11. Coagulopathy with a supratherapeutic Coumadin level, probably exacerbated from underlying dehydration, needing close monitor. 12. History of congestive heart failure with no current echocardiogram to review pending echocardiogram with no signs of current exacerbation. 13. History of gouty arthritis. 14. History of thyroid malignancy on Synthroid. 15. Hyperlipidemia. 16. Osteopenia. 17. History of seizure disorder on Dilantin. DISCHARGE DIAGNOSES: 1. Aspiration pneumonia having failed to respond to outpatient treatment plan. 2. Sepsis with elevated lactic acid and source of infection pneumonia of the right lung secondary to aspiration with mental status change and acute kidney failure. 3. Acute kidney failure with history of insufficiency, likely exacerbated from some prerenal azotemia from dehydration. 4. Moderate dehydration due to poor oral intake. 5. Findings on CT of the abdomen concerning for neoplastic process with the patient having a history of cancer in the past with noted soft tissue mass surrounding the mesenteric vessels as well as retroperitoneal lesions including the right pelvic, external iliac chain lesion also was noted with that with some moderate ascites and enlarged prostate that was indenting the floor of the urinary bladder and a mass-like density in the retrosigmoid colon concerning for colon neoplastic process. The patient's family and Dr. Cho discussed findings and decided that the bet course of action was comfort measures and continued treatment for the underlying pneumonia. 6. Elevated lipase likely due to underlying dehydration. 7. Benign positional vertigo by history. 8. Hypoalbuminemia with concern for malnutrition and severe deconditioning. 9. Cellulitis to the lower extremities bilaterally, chronic, failing to respond to outpatient treatment. 10. Normocytic/normochromic anemia, likely from chronic illness. 11. Acute mental status change secondary to underlying infectious process and some hypoxemia due to hypoxia secondary to pneumonia and the patient O2 dependent. 12. Chronic atrial fibrillation on Coumadin with controlled ventricular rate. 13. Coagulopathy with a supratherapeutic Coumadin level, probably exacerbated from underlying dehydration, needing close monitor. 14. History of congestive heart failure with no current echocardiogram to review pending echocardiogram with no signs of current exacerbation. 15. History of gouty arthritis. 16. History of thyroid malignancy on Synthroid. 17. Hyperlipidemia. 18. Osteopenia. 19. History of seizure disorder on Dilantin. REASON FOR HOSPITALIZATION: : Mr. Villalpando is an 88-year-old male patient who was brought to the ER today by his family when it was noted he was confused and disoriented with questionable slurred speech and short of breath. The family reported symptoms had been on and off for the last 4 days. Mr. Villalpando is currently being treated for right sided pneumonia on doxycycline. He does have a significant history of recent hospitalization in March for heat exhaustion and some lower leg cellulitis and acute kidney injury. Workup today showed white count 10,200 with left shift, platelet count 492,000, hemoglobin 10.6, hematocrit 32.0. Chemistries showed kidney function was again elevated with creatinine 1.8 with baseline creatinine around 1.2 to 1.5. Lactic acid was elevated at 3.1. Liver functions were elevated with a normal bilirubin, but AST 68. It was also noted he had lipase 172. CT of the chest was done and per radiologic interpretation was noted he had a right infrahilar consolidation concerning for pneumonia along with some mild interstitial pulmonary edema with small bilateral pleural effusions. Given the findings on CT and his symptomatology and some issues with swallowing which has been demonstrated in the past, there is concern that he may have developed aspiration pneumonia. He was initially started on antibiotics in the Emergency Room and is now going to be admitted for initiation of further treatment evaluation of aspiration pneumonia. The patient is admitted in stable condition. LABORATORY STUDIES: White count on admission 10,200, discharge was 10.500. Hemoglobin and hematocrit were showing to be stable at 9.5 and 28.9 respectively. Platelet count was 387,000 on discharge. Differential did show a left shift which was showing improvement prior to discharge. Coagulation studies showed initial INR of 4.64 on admission. Discharge INR was 2.29. Chemistries on admission shows normal electrolytes with a BUN of 62, creatinine 1.88, serum osmolality 298. Lactic acids showing to be elevated at 3.1 to 4.4. Calcium 10, bilirubin normal at 0.5, AST was elevated at 68, alkaline phosphatase 167. Other liver functions were was negative. Lipase was elevated at 172. On discharge, electrolytes were showing to be within normal limits except for a low carbon dioxide at 20, anion gap was elevated at 19.8, BUN 50, creatinine 1.55, glucose 91, magnesium 1.5 which is improved from admission of 1.0. Urinalysis was within normal limits. Digoxin normal at 1.4, Dilantin 4.1, vancomycin trough 11.9. MICROBIOLOGY: Blood cultures were showing to be negative at 24 hours. Sputum culture was pending. Influenza A and B by PCR was negative. RADIOLOGY: CT of the head without contrast per radiology interpretation on admission showed no evidence of acute internal process. Chest x-ray on admission and per radiology interpretation showed prominent right hilum. This was followed up with a CT of the chest without contrast and per radiology interpretation showed limited evaluation without contrast of the right inferior hilum 4.6 cm hypodensity, may represent focal consolidation or conglomeration or mass. There was note of interstitial pulmonary edema with a small amount of pleural effusion. He had a followup chest x-ray, the last one being on 09/27/18 and per radiology interpretation was noted there was a stable cardiac silhouette, stable right infrahilar opacity. Please see that report for details. He also had an abdominal/pelvic CT with and without contrast and per radiology interpretation there was note of a soft tissue mass in the central abdomen surrounding mesenteric vessels with multiple retroperitoneal lesions including right pelvic external iliac chain lesion with difference including lipoma versus lymphatic spread of neoplastic process with moderate ascites throughout the abdomen and pelvis. There was note of enlarged prostate indenting the floor of the urinary bladder and there was a mass-like density in the rectosigmoid colon concerning for colon neoplastic process. He had an echocardiogram done that showed an ejection fraction of 55% along with EKG that showed a normal sinus rhythm with no concerning signs for acute coronary syndrome. HOSPITAL COURSE: Mr. Villalpando was admitted for what was thought to be aspiration pneumonia. He was started aggressively on treatment with meropenem as well as vancomycin. He responded well to treatment, however, further examination through CT of abdomen revealed suspicious findings for possible colon cancer and other metastatic process. Given the patient's advanced age, weight loss and poor prognosis, after discussion with the family from Drs. Cho and Evelyne King, it was felt that the best course of action in agreement was to go to hospice for care and comfort measures. Arrangements were made at home through [facility] for hospice for care and comfort measures. The patient was showing to be stable enough for discharge to continue antibiotic therapy. Therefore, he will be discharged to outpatient management and hospice care. PLAN: Mr. Villalpando was discharged on 05/29 to hospice care for care and comfort measures through [facility]. He was to resume his usual diet as tolerated and activities as tolerated. New medications prescribed on discharge included continuing antibiotics of Augmentin for a total of 14-day treatment including hospitalization. He is to followup with Dr. Cho in the following week and will be followed for care and comfort with [facility]. All other medications prior to hospitalization were continued. DISPOSITION: The patient is discharged to in-house hospice through [facility]. Condition on discharge was stable but condition poor.and prognosis grim. #[id number] [facility]
== END 2019-05-29 13:55 | disposition hospice, home (50) | DRG 871 ==
LOC: ER 12:10 → MS 15:55 → OBSVTOIN 15:55 → MS 21:43
PROVIDERS: ADMIT Nurse Practitioner Family; ATTEND Nurse Practitioner Family
PROC: BW2110Z Computerized Tomography (CT Scan) of Abdomen and Pelvis using Low Osmolar Contrast, Unenhanced and Enhanced (ICD-10-PCS; principal; 2019-05-25)
DX: A41.9 Sepsis, unspecified organism (principal); J69.0 Pneumonitis due to inhalation of food and vomit; N17.9 Acute kidney failure, unspecified; E46 Unspecified protein-calorie malnutrition; L03.115 Cellulitis of right lower limb; L03.116 Cellulitis of left lower limb; C18.7 Malignant neoplasm of sigmoid colon; C79.9 Secondary malignant neoplasm of unspecified site; I13.0 Hypertensive heart and chronic kidney disease with heart failure and stage 1 through stage 4 chronic kidney disease, or unspecified chronic kidney disease; E86.0 Dehydration; D50.9 Iron deficiency anemia, unspecified; J44.9 Chronic obstructive pulmonary disease, unspecified; R09.02 Hypoxemia; R79.1 Abnormal coagulation profile; I50.9 Heart failure, unspecified; N18.9 Chronic kidney disease, unspecified; E89.0 Postprocedural hypothyroidism; M10.9 Gout, unspecified; H81.10 Benign paroxysmal vertigo, unspecified ear; E78.5 Hyperlipidemia, unspecified; M85.80 Other specified disorders of bone density and structure, unspecified site; G40.909 Epilepsy, unspecified, not intractable, without status epilepticus; N40.0 Benign prostatic hyperplasia without lower urinary tract symptoms; Z51.5 Encounter for palliative care; Z79.01 Long term (current) use of anticoagulants; Z99.81 Dependence on supplemental oxygen; Z79.899 Other long term (current) drug therapy; Z85.850 Personal history of malignant neoplasm of thyroid; Z96.652 Presence of left artificial knee joint; Z88.5 Allergy status to narcotic agent; Z87.891 Personal history of nicotine dependence